=== PATIENT | female | born 1965 | race Caucasian/White ===

== ENCOUNTER → 2017-02-16 | Outpatient (CLI) | payer BC, OTHER ==
--- NOTE | 2017-02-24 14:57 | P.ARTDOP ---
Arterial Doppler LOWER EXTREMITY ARTERIAL DOPPLER: DATE OF SERVICE: 02/16/17 Reason for study: Foot ulcers. Doppler waveforms: Multiphasic throughout on the right and above the knee on the left. Atypical below the knee on the left.. Pulse volume recording: Fairly normal configuration with some mild blunting distally, especially on the left. Pressure gradients: Mild gradient across the knee on the right. Moderate gradient above and across the knee on the left.. Ankle-brachial indices: 0.82 on the right and 0.58 on the left. Toe pressures: 70 on the right, 7 on the left Impression: Mild right SFA disease. At least moderate left fem-pop disease. Between toe pressures and digital waveforms, suspect perfusion probably not adequate for healing distally on the left. Clinical correlation and vascular consultation suggested..
== END | disposition home or self-care (01) ==
LOC: RADUSWWP 13:00
PROVIDERS: ATTEND Family Medicine
DX: I87.2 Venous insufficiency (chronic) (peripheral) (principal)
CPT/HCPCS: 93923

== ENCOUNTER → 2017-03-08 | Outpatient (CLI) | payer BC, OTHER ==
--- NOTE | 2017-03-08 10:04 | XR ---
EXAMINATION TYPE: XR chest 2V DATE OF EXAM: 03/08/2017 10:00 AM HISTORY: Z01.818 pre surgical testing. REFERENCE: Previous study dated 01/20/2016. FINDINGS: The lungs are clear. Pleural spaces are clear. Heart size is normal. IMPRESSION: NORMAL CHEST.
[2017-03-08 10:31] LABS: CH 32.3; CHCM 32.8; HCT 46.5 % (34.0-46.0); HDW 2.36; HGB 15.2 gm/dL (11.4-16.0); MCH 32.3 pg (25.0-35.0); MCHC 32.6 g/dL (31.0-37.0); Mean Platelet Volume 7.4; RDW 12.8 % (11.5-15.5); WBC 12.2 k/uL (3.8-10.6)
[2017-03-08 10:46] LABS: INR 0.9 (<1.1); Partial Thromboplastin Time 24.1 sec (22.0-30.0); Prothrombin Time 9.7 sec (9.0-12.0)
[2017-03-08 10:52] LABS: Anion Gap 12 mmol/L; Blood Urea Nitrogen 15 mg/dL (7-17); Carbon Dioxide 22 mmol/L (22-30); Chloride 107 mmol/L (98-107); Glucose 171 mg/dL (74-99); Non-African American GFR(MDRD) >60 (>60 ml/min/1.73 sqM); Potassium 4.4 mmol/L (3.5-5.1); Sodium 141 mmol/L (137-145)
[2017-03-08 10:56] LABS: Appearance,Urine Clear (Clear); Bilirubin,Urine Negative (Negative); Glucose,Urine (UA) 2+ (Negative); Ketones,Urine Negative (Negative); Leukocyte Esterase,Urine Large (Negative); Mucus,Urine Rare /hpf; Nitrite,Urine Negative (Negative); Particle Count 3191; Protein,Urine Trace (Negative); RBC,Urine 2 /hpf (0-5); Specific Gravity,Urine 1.017 (1.001-1.035); Squamous Epithelial Cell,Urine 3 /hpf (0-4); UA Billing (MACRO vs. MICRO) MICRO; Urobilinogen,Urine <2.0 mg/dL (<2.0); WBC,Urine 21 /hpf (0-5)
== END | disposition home or self-care (01) ==
LOC: LABPAT 09:31
PROVIDERS: ATTEND Surgery
DX: Z01.810 Encounter for preprocedural cardiovascular examination (principal); Z01.818 Encounter for other preprocedural examination; I96 Gangrene, not elsewhere classified; I10 Essential (primary) hypertension; R05 Cough; R53.83 Other fatigue
CPT/HCPCS: 71020; 80051; 81001; 82565; 82947; 84520; 85027; 85610; 85730; 87086

== ENCOUNTER 2017-03-09 11:26 | Inpatient (IN) | payer BC, OTHER ==
[2017-03-03 14:49] VITALS: BMI 33.8
--- NOTE | 2017-03-08 18:09 | P.HPIHPCON ---
History of Present Illness H&P Date: 03/04/17 Chief Complaint: non-healing ulcer left foot with critical limb ischemia impression; 1. critical left foot ischemia with non-healing left heel ulcer 2. diabetes mellitus 3. nicotine dependence 4. CAD; clinically asymptomatic; MPS demonstrates reversible defect inferior wall plan; 1. left femoral to above knee popliteal bypass with transposed left greater saphenous vein Risks and benefits of procedure discussed with patient including cardiac and pulmonary complications, infection, bleeding, wound healing complications, need for surveillance and possible re-intervention especially if patient continues to smoke, nerve dysfunction, graft thrombosis in early post-operative period requiring re-do surgery. Patient understands risks and benefits of procedure and is willing to have it performed. She understands that she is at increased risk of cardiac complications perioperatively, but that at present time clinically her PAD is more symptomatic than CAD. For limb salvage, she requires left leg revascularization before cardiac revascularization. HPI 51 y/o woman presented to office on 02/22/2017 with a non-healing left heel ulcer with gangrene that had been present for 3 weeks and failed to heal. 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 Smokes [id number] years. DM that is controlled with oral hypoglycemics. Underwent non-invasive testing that demonstrated moderate right leg arterial occlusive disease and severe left leg arterial occlusive disease. Underwent CTA of aorta with runoff that demonstrated diminutive vessels throughout with evidence of long-segment left SFA occlusion (>150mm) and 3-4mm arteries in the left thigh. Patient is currently scheduled for left femoral to above knee bypass with transposed left greater saphenous vein for wound healing and limb salvage. Denies a history of chest pain, dyspnea, generalized malaise. NO previous cardiac history. CMHx; HTN, HLD, DM, nicotine dependence, CAD, diabetic neuropathy, COPD PSHx; cholecystectomy, tubal ligation Habits; 35 pack year history of smoking, currently smoking 1ppd, no EtOH or drugs FHx; PAD, CHF, DM, CVA Meds; Metformin, Neurontin, Symbicort, Nebulizers Allergies; NKDA PE; WDWN female in NAD BP = 126/92, P=106, RR=18, S0ded=73% HEENT; normocephalic, aneicteric sclera, no carotid bruits, no JVD, trachea is midline, no thyromegaly or lymphadenopathy, Lungs; clear bilaterally Heart; RRR, normal S1 and S2 ABD; soft, non-tender, no pulsatile organomegaly EXTR; femoral pulses are palpable bilaterally; right popliteal and pedal pulses are diminished; left popliteal and pedal pulses are not palpable; 2cmx1.5cm gangrenous ulcer on lateral aspect of left heel, no evidence of infection or abscess formation Segmental pressures performed on 02/16/2017 demonstrate moderate right leg arterial occlusive disease with an ZULMA of 0.82 and a TBI of 0.54. The left leg demonstrates severe left leg arterial occlusive disease with an ZULMA of 0.45. The TBI is 0.05. PPG waveforms in the left foot are pulsatile and severely blunted in the left foot. CTA from 02/18/2017demonstrates patent aortoiliac system with thrombus noted posteriorly in the distal aorta that does not appear hemodynamically significant ; the left common iliac artery demonstrates proximal stenosis with calcification that approaches 40%; the left external iliac artery appears patent ; the common femoral artery demonstrates up to 50% narrowing proximally on one view; there is occlusion of the left SFA with reconstitution via collaterals at the adductor canal. The left popliteal artery is patent with three vessel runoff to the foot. Vessels are small and the SFA ranges between 3 and 4 mm. Vein mapping of the left leg demonstrates patent GSV that ranges from 4.5 to 3.5 mm in the left thigh. impression/plan as noted above Consent for Procedure: I have explained the operation/procedure to the patient, including the risks, benefits, side effects, alternative therapies (including not receiving the proposed treatment or service), the likelihood of the patient achieving his/her goals, and potential recuperation problems for the procedure/sedation/analgesia , as well as any blood products, if indicated. I also explained to the patient the risks, benefits and side effects of the alternatives, as well as the risks related to not receiving the proposed procedure, care, treatment, or services. Past Medical History Past Medical History: COPD, CVA/TIA, Diabetes Mellitus, GERD/Reflux, Skin Disorder, Vascular Disorder Additional Past Medical History / Comment(s): neuropathy, TIA 2016-no residual effects, recent stress test, wound left heel History of Any Multi-Drug Resistant Organisms: None Reported Past Surgical History: Cholecystectomy, Tubal Ligation Past Anesthesia/Blood Transfusion Reactions: No Reported Reaction Past Psychological History: Depression Smoking Status: Current every day smoker Past Alcohol Use History: None Reported Additional Past Alcohol Use History / Comment(s): down to <10 cigs/day, has smoked since age of 16, used to smoke 1ppd to 1 1/2ppd Past Drug Use History: None Reported - Past Family History Mother Family Medical History: CVA/TIA Additional Family Medical History / Comment(s): borderline diabetic Father Family Medical History: Congestive Heart Failure (CHF), Diabetes Mellitus, Myocardial Infarction ([place]) Brother(s) Family Medical History: Diabetes Mellitus, Sleep Apnea/CPAP/BIPAP Sister(s) Family Medical History: AFIB Additional Family Medical History / Comment(s): unsure if sister has DM anymore since she received gastric surgery. Medications and Allergies Home Medications Medication Instructions Recorded Confirmed Type Atorvastatin Calcium [Lipitor] 40 mg PO HS 01/20/16 03/03/17 History metFORMIN HCL [Glucophage] 500 mg PO TID 01/20/16 03/04/17 History Aspirin 81 mg PO DAILY 03/03/17 03/03/17 History Budesonide-Formot 160-4.5 Mcg 2 puff INHALATION RT-BID PRN 03/03/17 03/03/17 History [Symbicort 160-4.5 Mcg Inhaler] Empagliflozin [Jardiance] 25 mg PO DAILY 03/03/17 03/03/17 History Gabapentin [Neurontin] 400 mg PO TID 03/03/17 03/04/17 History Ibuprofen [Motrin] 800 mg PO Q8HR PRN 03/03/17 03/03/17 History Ipratropium-Albuterol Nebulize 3 ml INHALATION RT-QID PRN 03/03/17 03/03/17 History [Duoneb 0.5 mg-3 mg/3 ml Soln] Mupirocin 2% Oint [Bactroban 2% 1 applic TOPICAL TID 03/03/17 03/03/17 History Oint] Nitroglycerin Sl Tabs [Nitrostat] 0.4 mg SUBLINGUAL Q5M PRN 03/03/17 03/03/17 History Omeprazole [PriLOSEC] 20 mg PO AC-BID PRN 03/03/17 03/03/17 History Metoprolol Tartrate [Lopressor] 12.5 mg PO BID 03/04/17 03/04/17 History Allergies Allergy/AdvReac Type Severity Reaction Status Date / Time No Known Allergies Allergy Verified 03/03/17 14:02
[~2017-03-09 11:26] MED LIST: DEXAMETHASONE SOD PHOSPHATE 10 MG/ML 1 ML VIAL IV ONE; HYDROmorphone 1 MG/ML 1 ML SYRINGE IVP PRN; LACTATED RINGERS 1,000 ML IV SCH; MIDAZOLAM 2 MG/2 ML VIAL IV PRN; ONDANSETRON 4 MG/2 ML VIAL IVP ONE; SCOPOLAMINE 1.5MG/72HR PATCH TRANSDERM ONE; VANCOMYCIN 1,500 MG in SODIUM CHLORIDE 0.9% 250 ML IVPB ONE
[2017-03-09 11:54] LABS: Glucose,Whole Blood 143 mg/dL (75-99)
[2017-03-09] MEDS ORDERED: LIDOCAINE 1% 20 ML VIAL (10MG/ML) FOR IV START SQ ONE (12:10)
[2017-03-09] MEDS ORDERED: LEVOFLOXACIN 500MG-D5W PMX 500 MG in DEXTROSE/WATER 1 100ML.BAG IVPB STA (12:17)
[2017-03-09] MEDS ORDERED: HEPARIN SODIUM 1,000 UNIT/ML VIAL ONE (12:47)
[2017-03-09] MEDS ORDERED: fentaNYL (PF) 50 MCG/ML 2 ML AMP ONE (12:47)
[2017-03-09] MEDS ORDERED: NEOSTIGMINE 1 MG/ML 10 ML VIAL ONE (12:47)
[2017-03-09] MEDS ORDERED: MIDAZOLAM 2 MG/2 ML VIAL ONE (12:47)
[2017-03-09] MEDS ORDERED: ETOMIDATE 2 MG/ML 10 ML VIAL ONE (12:47)
[2017-03-09] MEDS ORDERED: PROPOFOL 10 MG/ML 20 ML VIAL IV ONE (12:47)
[2017-03-09] MEDS ORDERED: ESMOLOL 100 MG/10 ML VIAL ONE (12:47)
[2017-03-09] MEDS ORDERED: ROCURONIUM BROMIDE 10 MG/ML 10 ML VIAL IV ONE (12:47)
[2017-03-09] MEDS ORDERED: GLYCOPYRROLATE 0.2 MG/ML 2 ML VIAL ONE (12:47)
[2017-03-09] MEDS ORDERED: HEPARIN SODIUM,PORCINE 5,000 UNIT/ML 1 ML VIAL ONE (12:47)
[2017-03-09] MEDS ORDERED: HYDROmorphone (PF) 1 MG/ML ONE (12:47)
[2017-03-09] MEDS ORDERED: PHENYLEPHRINE-0.9% NACL SYG 1 MG/10 ML SYRINGE ONE (12:47)
[2017-03-09] MEDS ORDERED: LIDOCAINE 1% INJ 10MG/ML (20 ML MDV) ONE (12:47)
[2017-03-09] MEDS ORDERED: SUCCINYLCHOLINE CHLORIDE 100 MG/5 ML SYR IV ONE (12:47)
[2017-03-09] MEDS ORDERED: SODIUM CHLORIDE 0.9% 500 ML with HEPARIN SODIUM,PORCINE 5,000 UNIT IV ONE ×2 (13:25)
[2017-03-09] MEDS ORDERED: IOHEXOL 350 MG/ML 50ML BOTTLE MISCELLANE ONE ×2 (14:06)
[2017-03-09] MEDS ORDERED: THROMBIN (BOVINE) 5,000 UNIT VIAL TOPICAL ONE (14:16)
[2017-03-09] MEDS ORDERED: GELATIN SPONGE,ABSORB (LARGE) 1 EACH SPONGE TOPICAL ONE (14:16)
[2017-03-09] MEDS ORDERED: PAPAVERINE 30 MG/ML 2 ML VIAL IM ONE (14:25)
[2017-03-09] MEDS ORDERED: LACTATED RINGERS 1,000 ML IV ONE ×3 (16:30→19:22)
[2017-03-09] MEDS ORDERED: oxyCODONE-APAP 7.5-325MG 1 EACH TAB PO PRN (18:48)
[2017-03-09 18:50] LABS: Glucose,Whole Blood 183 mg/dL (75-99)
[2017-03-09 19:19] LABS: Basophils % (A) 0 %; CH 32.2; CHCM 32.9; Eosinophils # (A) 0.1 k/uL (0-0.7); Eosinophils % (A) 1 %; HCT 39.6 % (34.0-46.0); HDW 2.33; HGB 12.9 gm/dL (11.4-16.0); Luc # (Auto) 0.05; Luc % (Auto) 0; Lymphocytes # (A) 0.9 k/uL (1.0-4.8); Lymphocytes % (A) 6 %; MCH 32.1 pg (25.0-35.0); MCHC 32.6 g/dL (31.0-37.0); MCV 98.4 fL (80.0-100.0); Mean Platelet Volume 7.4; Monocytes # (A) 0.2 k/uL (0-1.0); Monocytes % (A) 1 %; Neutrophils # (A) 14.7 k/uL (1.3-7.7); Neutrophils % (A) 92 %; RBC 4.03 m/uL (3.80-5.40); RDW 12.7 % (11.5-15.5); WBC (Perox) 17.17
--- NOTE | 2017-03-09 19:25 | P.OP ---
Date of Procedure: 03/09/17 Preoperative Diagnosis: critical left foot ischemia with left foot ulcer with gangrene Postoperative Diagnosis: same Procedure(s) Performed: left femoral to above knee popliteal bypass with transposed left greater saphenous vein Implants: Anesthesia: NATEA Surgeon: Mariela Khalil Manufacturing Team Leader #1: Emanuel Gt Estimated Blood Loss (ml): 250 IV fluids (ml): 1,900 Urine output (ml): 350 Pathology: other (left groin lymph node) Condition: stable Indications for Procedure: The patient is a 51-year-old woman with a greater than one-month history of a nonhealing left foot ulcer. She has a history of diabetes mellitus, hyperlipidemia, and nicotine dependence. She underwent noninvasive vascular testing that demonstrated critical left foot ischemia and severe left leg arterial occlusive disease. She underwent a CTA of the aorta that demonstrated occlusion of the left superficial femoral artery from the proximal portion to its midsection. The superficial femoral artery was a diminutive vessel and measured 3-4 mm. She underwent vein mapping of the left leg that demonstrated a good quality saphenous vein. Patient is currently scheduled for a left femoral to above-knee popliteal bypass with transposed left greater saphenous vein and related procedures. Operative Findings: #1. Good quality left greater saphenous vein #2. Diminutive but good quality left proximal popliteal artery. Description of Procedure: After induction of adequate general anesthesia via endotracheal tube, the patient's groins and left leg were prepped and draped in the usual sterile fashion. An incision was made over the distal left superficial femoral artery in the distal thigh. This was carried through the skin and subcutaneous tissues to the neurovascular bundle containing the superficial femoral and proximal popliteal arteries. The artery was identified, isolated and was noted to be of adequate quality for bypass procedure. Through the same incision the left greater saphenous vein was located. It was noted to be of good quality for bypass procedure. Tributaries were divided between 3-0 and 4-0 silk ties and hemoclips. An on-table arteriogram of the left distal popliteal artery was then performed and this demonstrated that it was widely patent with three- vessel runoff to the left foot. An oblique incision was then made in the patient's left groin. This was carried through the skin and subcutaneous tissues to the neurovascular bundle containing the left common femoral artery. This was a fairly deep dissection secondary to the patient's body habitus. The left common femoral artery was identified and isolated. It was noted to be of good quality for anastomosis. The left greater saphenous vein was then harvested from the saphenofemoral junction to just below the popliteal fossa through his series of small skip incisions. The vein was noted to be of good quality for bypass procedure. A anatomical tunnel was then created between the incision used to isolate the proximal popliteal artery and the incision used to isolate the common femoral artery. A tunneler was left in situ. The patient was then given 6000 units of heparin IV and ACT's were maintained between 250 and 300 throughout the case. The vein was inspected. A LeMaitre valvulotome was then used to lyse valves so that the vein could be placed in a transposed fashion. An end-to-side anastomosis between the proximal left greater saphenous vein and the common femoral artery was then performed at the 6-0 Prolene running. Prior to completion, a 5 mm dilator easily passed through the toe of the anastomosis into the external iliac artery. There was excellent prograde flow and good backbleeding. The anastomosis was completed and flow was released distally into the vein graft. The vein graft was then marked. It was threaded through the tunnel taking care not to twist it. An end-to-side anastomosis between the distal greater saphenous vein and the popliteal artery was then performed with a 6-0 Prolene running. Prior to completion, a 3.5 mm dilator easily passed into the distal popliteal artery. There was good backbleeding bleeding from the popliteal artery had an excellent program prograde flow through the vein graft. The anastomosis was completed and flow was released distally. An on table arteriogram demonstrated that the vein graft was patent with no evidence of technical defects. The distal anastomosis appeared widely patent with runoff via the popliteal artery that was also widely patent. All incisions were then copiously irrigated with saline solution. Hemostasis was assured with thrombin, Gelfoam, electrocautery. Incisions were closed in layers. The leg incisions were closed with a 3-0 PDS interrupted for the deep subcutaneous tissues and a 4-0 PDS interrupted for the superficial subcutaneous tissues. 4-0 nylon interrupted to skin. Incision in the groin was closed as follows. 0 PDS was used to approximate the femoral sheath. 0 PDS was used to approximate the deep subcutaneous tissues. 3-0 PDS for the more superficial subcutaneous tissues. 4-0 PDS for the most superficial subcutaneous tissues. 4-0 nylon and su to skin. Sterile dressings. Needle and sponge counts were correct. Patient tolerated the procedure and was returned to recovery in satisfactory condition. She had a palpable posterior tibial and dorsalis pedis pulse. Her foot was viable
[2017-03-09 19:43] LABS: Anion Gap 10 mmol/L; Blood Urea Nitrogen 12 mg/dL (7-17); Calcium 8.6 mg/dL (8.4-10.2); Carbon Dioxide 15 mmol/L (22-30); Chloride 112 mmol/L (98-107); Glucose 176 mg/dL (74-99); Magnesium 1.3 mg/dL (1.6-2.3); Non-African American GFR(MDRD) >60 (>60 ml/min/1.73 sqM); Potassium 4.6 mmol/L (3.5-5.1); Sodium 137 mmol/L (137-145)
[2017-03-09] MEDS ORDERED: ONDANSETRON 4 MG/2 ML VIAL IVP PRN (20:59)
[2017-03-09] MEDS ORDERED: NITROGLYCERIN SL TABS 0.4 MG TAB SUBLINGUAL PRN (20:59)
[2017-03-09] MEDS ORDERED: METOPROLOL TARTRATE 5 MG/5 ML VIAL IVP PRN (20:59)
[2017-03-09] MEDS ORDERED: IV VANCOMYCIN PER PHARMACY 1 EACH MISC MISCELLANE PRN (20:59)
[2017-03-09] MEDS ORDERED: NALOXONE 0.4 MG/ML 1 ML VIAL IV PRN (21:01)
[2017-03-09 21:23] LABS: Basophils % (A) 0 %; CH 32.2; CHCM 32.9; Eosinophils # (A) 0.1 k/uL (0-0.7); Eosinophils % (A) 1 %; HCT 43.2 % (34.0-46.0); HGB 13.9 gm/dL (11.4-16.0); Luc % (Auto) 1; Lymphocytes # (A) 1.2 k/uL (1.0-4.8); Lymphocytes % (A) 6 %; MCH 31.7 pg (25.0-35.0); MCHC 32.2 g/dL (31.0-37.0); MCV 98.3 fL (80.0-100.0); Mean Platelet Volume 7.2; Monocytes # (A) 0.6 k/uL (0-1.0); Monocytes % (A) 3 %; Neutrophils # (A) 19.3 k/uL (1.3-7.7); Neutrophils % (A) 90 %; RDW 12.7 % (11.5-15.5); WBC 21.3 k/uL (3.8-10.6)
[2017-03-09] MEDS: MAGNESIUM SULFATE-D5W PMX 1 GM in DEXTROSE/WATER 1 100ML.BAG IVPB SCH ×2 (21:32→22:57)
[2017-03-09] MEDS: ATORVASTATIN 40 MG TAB PO SCH (21:33)
[2017-03-09] MEDS: GABAPENTIN 400 MG CAP PO SCH (21:33)
[2017-03-09] MEDS: LACTATED RINGERS 1,000 ML IV SCH (21:39)
[2017-03-09 22:18] LABS: Glucose,Whole Blood 162 mg/dL (75-99)
[2017-03-09] MEDS: INSULIN LISPRO (humaLOG) 300 UNIT/3 ML VIAL SQ SCH (22:57)
[2017-03-10 00:44] LABS: Hemoglobin A1C 7.4 % (4.2-6.1)
[2017-03-10 02:03] LABS: Glucose,Whole Blood 138 mg/dL (75-99)
[2017-03-10] MEDS: INSULIN LISPRO (humaLOG) 300 UNIT/3 ML VIAL SQ SCH ×4 (02:03→18:01)
[2017-03-10] MEDS: PHENYLEPHRINE 40 MG in SODIUM CHLORIDE 0.9% 250 ML IV SCH ×2 (02:59→23:11)
[2017-03-10 04:49] LABS: Basophils # (A) 0.1 k/uL (0-0.2); Basophils % (A) 0 %; CH 32.2; CHCM 33.2; Eosinophils # (A) 0.1 k/uL (0-0.7); Eosinophils % (A) 0 %; HCT 41.8 % (34.0-46.0); HDW 2.32; HGB 13.7 gm/dL (11.4-16.0); Luc # (Auto) 0.25; Luc % (Auto) 1; Lymphocytes # (A) 2.7 k/uL (1.0-4.8); Lymphocytes % (A) 13 %; MCH 31.9 pg (25.0-35.0); MCHC 32.7 g/dL (31.0-37.0); MCV 97.4 fL (80.0-100.0); Mean Platelet Volume 7.7; Monocytes # (A) 1.2 k/uL (0-1.0); Monocytes % (A) 6 %; Neutrophils # (A) 16.7 k/uL (1.3-7.7); Neutrophils % (A) 80 %; RBC 4.29 m/uL (3.80-5.40); RDW 12.6 % (11.5-15.5); WBC 20.9 k/uL (3.8-10.6)
[2017-03-10 05:02] LABS: Anion Gap 8 mmol/L; Blood Urea Nitrogen 9 mg/dL (7-17); Calcium 9.1 mg/dL (8.4-10.2); Carbon Dioxide 20 mmol/L (22-30); Chloride 109 mmol/L (98-107); Glucose 134 mg/dL (74-99); Magnesium 1.9 mg/dL (1.6-2.3); Non-African American GFR(MDRD) >60 (>60 ml/min/1.73 sqM); Phosphorous 3.9 mg/dL (2.5-4.5); Potassium 4.6 mmol/L (3.5-5.1); Sodium 137 mmol/L (137-145)
[2017-03-10] MEDS ORDERED: VANCOMYCIN 1,250 MG in SODIUM CHLORIDE 0.9% 250 ML IVPB ONE (06:00)
[2017-03-10] MEDS ORDERED: Magnesium Replacement Protocol 1 EACH MISC MISCELLANE PRN (06:26)
[2017-03-10] MEDS: LACTATED RINGERS 1,000 ML IV SCH ×3 (06:26→21:46)
[2017-03-10 06:28] LABS: Glucose,Whole Blood 149 mg/dL (75-99)
--- NOTE | 2017-03-10 07:09 | P.PN ---
Progress Note - Text no adverse events overnight on neosynephrine drip to keep BP systolic > 100 AR low 100s pain under control BP = 104/63, AR= 105 O2 sat = 93% on RA Lungs; clear bilaterally, IS = 1500cc EXTR; dressings are intact; palpable left posterior tibial pulse, left foot is viable Labs; reviewed; no intervention at present time leukocytosis secondary to surgical stress and dexamethasone impression/plan 1. s/p left femoral to popliteal bypass 2. hypotension and tachycardia 3. diabetes mellitus 4. CAD 5. nicotine dependence advance diet 500cc bolus LR wean ramírez to off OOB to chair restart [id number]-tawnya when able
--- NOTE | 2017-03-10 07:55 | FL ---
FLUOROSCOPY 1.11 minutes of fluoroscopy time were utilized during Pain Injection. 0 images document the procedure .
[2017-03-10] MEDS: ASPIRIN 81 MG CHEW PO SCH (08:41)
[2017-03-10] MEDS: GABAPENTIN 400 MG CAP PO SCH ×3 (08:41→21:48)
[2017-03-10] MEDS: ENOXAPARIN 40 MG/0.4 ML SYRINGE SQ SCH (08:41)
[2017-03-10] MEDS: PANTOPRAZOLE 40 MG TABLET PO SCH (08:41)
[2017-03-10] MEDS: METOPROLOL TARTRATE 12.5 MG TAB PO SCH ×2 (08:42→21:49)
[2017-03-10] MEDS: NICOTINE 21MG/24HR PATCH TRANSDERM SCH (09:01)
[2017-03-10] MEDS: MAGNESIUM SULFATE-D5W PMX 1 GM in DEXTROSE/WATER 1 100ML.BAG IVPB SCH ×2 (09:01→10:26)
[2017-03-10] MEDS: oxyCODONE-APAP 10-325MG 1 EACH TAB PO PRN ×2 (10:59→19:43)
[2017-03-10 12:07] LABS: Glucose,Whole Blood 249 mg/dL (75-99)
--- NOTE | 2017-03-10 14:36 | P.CNPUL ---
History of Present Illness Consult date: 03/10/17 Reason for consult: COPD Chief complaint: PAD, diabetic ulcer History of present illness: This is a 51-year-old female who presented to the hospital for femoral- popliteal bypass surgery. The patient has a left foot ulcer and critical limb ischemia. The patient is in the intensive care unit secondary to postoperative hypotension. The patient is currently on Puma-Synephrine. The patient is a an active smoker. She smokes 1 pack per day for the last 35 years. She states she 's never seen a fabric inspector in the office. She states she has Symbicort and a nebulizer at home but she never uses. She is unsure if she's ever had a pulmonary function test in the past. Review of Systems All systems: negative Past Medical History Past Medical History: COPD, CVA/TIA, Diabetes Mellitus, GERD/Reflux, Skin Disorder, Vascular Disorder Additional Past Medical History / Comment(s): neuropathy, TIA 2015-no residual effects, recent stress test, wound left heel History of Any Multi-Drug Resistant Organisms: None Reported Past Surgical History: Cholecystectomy, Tubal Ligation Past Anesthesia/Blood Transfusion Reactions: No Reported Reaction Past Psychological History: Depression Smoking Status: Current every day smoker Past Alcohol Use History: None Reported Additional Past Alcohol Use History / Comment(s): down to <10 cigs/day, has smoked since age of 16, used to smoke 1ppd to 1 1/2ppd Past Drug Use History: None Reported - Past Family History Mother Family Medical History: CVA/TIA Additional Family Medical History / Comment(s): borderline diabetic Father Family Medical History: Congestive Heart Failure (CHF), Diabetes Mellitus, Myocardial Infarction ([place]) Brother(s) Family Medical History: Diabetes Mellitus, Sleep Apnea/CPAP/BIPAP Sister(s) Family Medical History: AFIB Additional Family Medical History / Comment(s): unsure if sister has DM anymore since she received gastric surgery. Medications and Allergies Home Medications Medication Instructions Recorded Confirmed Type Atorvastatin Calcium [Lipitor] 40 mg PO HS 01/20/16 03/09/17 History metFORMIN HCL [Glucophage] 500 mg PO TID 01/20/16 03/09/17 History Aspirin 81 mg PO DAILY 03/03/17 03/09/17 History Budesonide-Formot 160-4.5 Mcg 2 puff INHALATION RT-BID PRN 03/03/17 03/09/17 History [Symbicort 160-4.5 Mcg Inhaler] Empagliflozin [Jardiance] 25 mg PO DAILY 03/03/17 03/09/17 History Gabapentin [Neurontin] 400 mg PO TID 03/03/17 03/09/17 History Ibuprofen [Motrin] 800 mg PO Q8HR PRN 03/03/17 03/09/17 History Ipratropium-Albuterol Nebulize 3 ml INHALATION RT-QID PRN 03/03/17 03/09/17 History [Duoneb 0.5 mg-3 mg/3 ml Soln] Mupirocin 2% Oint [Bactroban 2% 1 applic TOPICAL TID 03/03/17 03/09/17 History Oint] Nitroglycerin Sl Tabs [Nitrostat] 0.4 mg SUBLINGUAL Q5M PRN 03/03/17 03/09/17 History Omeprazole [PriLOSEC] 20 mg PO AC-BID PRN 03/03/17 03/09/17 History Allergies Allergy/AdvReac Type Severity Reaction Status Date / Time No Known Allergies Allergy Verified 03/03/17 14:02 Physical Exam Osteopathic Statement: *. No significant issues noted on an osteopathic structural exam other than those noted in the History and Physical/Consult. Vitals: Vital Signs Temp Pulse Pulse Resp BP BP BP 03/10/17 13:00 109 H 52 H 87/63 03/10/17 12:00 98.3 F 103 H 18 131/82 03/10/17 11:00 101 H 18 88/71 03/10/17 10:00 106 H 15 88/71 03/10/17 09:00 105 H 17 83/56 03/10/17 08:00 98.3 F 102 H 15 100/62 03/10/17 07:00 105 H 14 88/57 03/10/17 06:00 108 H 15 92/68 03/10/17 05:00 107 H 11 L 81/55 03/10/17 04:00 98.7 F 103 H 14 80/56 03/10/17 03:00 108 H 14 82/54 03/10/17 02:00 106 H 13 83/61 03/10/17 01:00 102 H 13 86/52 03/10/17 00:00 98.4 F 83 13 78/52 03/09/17 23:03 102 H 13 03/09/17 23:00 100 20 90/54 03/09/17 22:30 98 13 101/62 03/09/17 22:00 96 14 113/62 03/09/17 21:30 97 12 114/64 03/09/17 21:10 100 13 113/62 03/09/17 21:00 96 11 L 113/62 03/09/17 20:50 97 12 108/57 03/09/17 20:40 99 11 L 108/57 03/09/17 20:30 98 10 L 108/57 03/09/17 20:20 98.8 F 99 11 L 133/61 03/09/17 20:14 100 14 03/09/17 19:43 84 18 104/56 03/09/17 19:20 85 18 91/53 03/09/17 19:14 86 18 77/36 99/52 03/09/17 19:00 79 18 101/52 112/56 03/09/17 18:45 96 16 117/63 109/57 03/09/17 18:30 99 16 87/48 107/56 03/09/17 18:14 98.7 F 109 H 14 92/52 110/57 Pulse Ox 03/10/17 13:00 96 03/10/17 12:00 95 03/10/17 11:00 96 03/10/17 10:00 97 03/10/17 09:00 95 03/10/17 08:00 95 03/10/17 07:00 93 L 03/10/17 06:00 98 03/10/17 05:00 97 03/10/17 04:00 98 03/10/17 03:00 98 03/10/17 02:00 98 03/10/17 01:00 98 03/10/17 00:00 98 03/09/17 23:03 97 03/09/17 23:00 97 03/09/17 22:30 98 03/09/17 22:00 97 03/09/17 21:30 98 03/09/17 21:10 98 03/09/17 21:00 97 03/09/17 20:50 92 L 03/09/17 20:40 94 L 03/09/17 20:30 95 03/09/17 20:20 03/09/17 20:14 03/09/17 19:43 97 03/09/17 19:20 96 03/09/17 19:14 96 03/09/17 19:00 96 03/09/17 18:45 99 03/09/17 18:30 99 03/09/17 18:14 97 Intake and Output 03/09/17 03/10/17 03/10/17 22:59 06:59 14:59 Intake Total 3520 7090.861 2950.67 Output Total 029 659 3171 Balance 2595 635.604 133.67 Intake: IV 2500 200 Lactated Ringers 1,000 ml 200 @ 100 mls/hr IV .Q10H STACIE Rx#:[id number] Intake, IV Titration 300 910.604 703.67 Amount Lactated Ringers 1,000 ml 200 800 100 @ 100 mls/hr IV .Q10H STACIE Rx#:[id number] Lactated Ringers 500 ml @ 250 250 mls/hr IV .Q2H STACIE Rx#:[id number] Magnesium Sulfate-D5w Pmx 100 100 1 gm In Dextrose/Water 1 100ml.bag @ 100 mls/hr IVPB Q1H STACIE Rx#: [id number] Magnesium Sulfate-D5w Pmx 200 1 gm In Dextrose/Water 1 100ml.bag @ 100 mls/hr IVPB Q1H STACIE Rx#: [id number] Phenylephrine 40 mg In 10.604 153.67 Sodium Chloride 0.9% 250 ml @ Titrate IV .Q0M STACIE Rx#:[id number] Oral 720 600 240 Output: Urine 520 909 0586 Estimated Blood Loss 250 Other: Voiding Method Indwelling Catheter Indwelling Catheter # Bowel Movements 0 Weight 88.7 kg ABP, PAP, CO, CI - Last 8 Hours Arterial Blood Pressure 105/93 Arterial Blood Pressure 168/80 Arterial Blood Pressure 109/60 Arterial Blood Pressure 108/67 Arterial Blood Pressure 94/60 Arterial Blood Pressure 88/65 Arterial Blood Pressure 104/63 Gen.: Patient is alert and oriented 3, no acute distress Cardiovascular: Regular rate and rhythm, S1/S2 Lungs: Diminished breath sounds bilaterally Abdomen: Soft nontender nondistended positive bowel sounds Extremities: No edema, left lower extremity dressing clean dry and intact Results - Laboratory Findings CBC and BMP: 03/10/17 03:59 03/10/17 03:59 Abnormal lab findings: Abnormal Labs 03/09/17 03/09/17 03/09/17 11:52 18:44 19:00 WBC 16.0 H Neutrophils # 14.7 H Lymphocytes # 0.9 L Monocytes # Chloride Carbon Dioxide Creatinine Glucose POC Glucose (mg/dL) 143 H 183 H Hemoglobin A1c Magnesium 03/09/17 03/09/17 03/09/17 19:00 21:06 21:06 WBC 21.3 H Neutrophils # 19.3 H Lymphocytes # Monocytes # Chloride 112 H Carbon Dioxide 15 L Creatinine 0.45 L Glucose 176 H POC Glucose (mg/dL) Hemoglobin A1c 7.4 H Magnesium 1.3 L 03/09/17 03/10/17 03/10/17 22:17 02:02 03:59 WBC 20.9 H Neutrophils # 16.7 H Lymphocytes # Monocytes # 1.2 H Chloride Carbon Dioxide Creatinine Glucose POC Glucose (mg/dL) 162 H 138 H Hemoglobin A1c Magnesium 03/10/17 03/10/17 03/10/17 03:59 06:26 12:05 WBC Neutrophils # Lymphocytes # Monocytes # Chloride 109 H Carbon Dioxide 20 L Creatinine 0.47 L Glucose 134 H POC Glucose (mg/dL) 149 H 249 H Hemoglobin A1c Magnesium Assessment and Plan Plan: Status post femoral-popliteal bypass surgery Postoperative hypotension COPD, not acutely exacerbated Active tobacco abuse Diabetes mellitus type 2 with neuropathy and a left foot ulcer Leukocytosis Hypertension Dyslipidemia Coronary artery disease Maintain saturation greater than or equal to 88% Wean Puma-Synephrine or map greater than 65 Smoking cessation is highly recommended Will start patient on Symbicort and Spiriva Outpatient pulmonary follow-up with pulmonary function testing Incentive spirometry and pulmonary hygiene Blood sugar control Nicotine TD GI and DVT prophylaxis Thank you for this consultation we'll continue to follow along
[2017-03-10] MEDS: LACTATED RINGERS 500 ML IV SCH (15:00)
[2017-03-10 18:05] LABS: Glucose,Whole Blood 206 mg/dL (75-99)
[2017-03-10] MEDS: ATORVASTATIN 40 MG TAB PO SCH (21:47)
[2017-03-11] MEDS: oxyCODONE-APAP 10-325MG 1 EACH TAB PO PRN ×2 (01:03→15:50)
[2017-03-11 01:04] LABS: Glucose,Whole Blood 154 mg/dL (75-99)
[2017-03-11] MEDS: INSULIN LISPRO (humaLOG) 300 UNIT/3 ML VIAL SQ SCH ×5 (01:04→21:47)
[2017-03-11] MEDS ORDERED: PHENYLEPHRINE 40 MG in SODIUM CHLORIDE 0.9% 250 ML IV SCH (01:30)
[2017-03-11 04:19] LABS: Basophils # (A) 0.1 k/uL (0-0.2); Basophils % (A) 1 %; CH 32.5; CHCM 33.2; Eosinophils # (A) 0.2 k/uL (0-0.7); Eosinophils % (A) 1 %; HCT 35.8 % (34.0-46.0); HDW 2.25; HGB 11.9 gm/dL (11.4-16.0); Luc # (Auto) 0.23; Luc % (Auto) 2; Lymphocytes # (A) 2.9 k/uL (1.0-4.8); Lymphocytes % (A) 22 %; MCH 32.7 pg (25.0-35.0); MCHC 33.3 g/dL (31.0-37.0); MCV 98.1 fL (80.0-100.0); Mean Platelet Volume 7.3; Monocytes # (A) 0.8 k/uL (0-1.0); Monocytes % (A) 6 %; Neutrophils # (A) 9.2 k/uL (1.3-7.7); Neutrophils % (A) 69 %; RBC 3.65 m/uL (3.80-5.40); RDW 12.9 % (11.5-15.5); WBC 13.4 k/uL (3.8-10.6); WBC (Perox) 14.38
[2017-03-11 04:28] LABS: Anion Gap 6 mmol/L; Blood Urea Nitrogen 9 mg/dL (7-17); Calcium 8.7 mg/dL (8.4-10.2); Carbon Dioxide 22 mmol/L (22-30); Chloride 109 mmol/L (98-107); Glucose 120 mg/dL (74-99); Magnesium 1.6 mg/dL (1.6-2.3); Non-African American GFR(MDRD) >60 (>60 ml/min/1.73 sqM); Potassium 3.8 mmol/L (3.5-5.1); Sodium 137 mmol/L (137-145)
--- NOTE | 2017-03-11 07:24 | P.PN ---
Progress Note - Text hypotensive overnight requiring neosynepherine otherwise no new complaints has non-productive cough BP = 94/60 AR= 88 I/O = 811/108 last shift; 1297/1100 lungs; clear bilaterally; IS = 1500cc EXTR; left leg demonstrates healing incisions without evidence of infection or hematoma formation; palpable dorsalis pedis pulse and posterior tibial pulse; foot is viable; ulcerative areas appear stable Labs; reviewed; no intervention at present impression/plan 1. s/p left femoral to above knee popltieal bypass with transposed left greater saphenous vein 2. COPD 3. DM 4. nicotine dependence 5. CAD wean ramírez to off transfer to [facility] with telemetry OT/PT d/c daphney-anjali and hugh
[2017-03-11] MEDS: IPRATROPIUM-ALBUTEROL 3 ML NEB INHALATION PRN ×2 (07:37→12:16)
[2017-03-11] MEDS: TIOTROPIUM 18 MCG/PUFF INHALER INHALATION SCH (07:40)
[2017-03-11] MEDS: SYMBICORT 160-4.5 MCG INHALER INHALATION PRN (07:40)
[2017-03-11] MEDS ORDERED: LACTATED RINGERS 1,000 ML IV SCH (08:30)
[2017-03-11] MEDS: MAGNESIUM SULFATE-D5W PMX 1 GM in DEXTROSE/WATER 1 100ML.BAG IVPB SCH ×2 (09:12→12:50)
[2017-03-11] MEDS: ENOXAPARIN 40 MG/0.4 ML SYRINGE SQ SCH (09:13)
[2017-03-11] MEDS: ASPIRIN 81 MG CHEW PO SCH (09:13)
[2017-03-11] MEDS: NICOTINE 21MG/24HR PATCH TRANSDERM SCH (09:13)
[2017-03-11] MEDS: PANTOPRAZOLE 40 MG TABLET PO SCH (09:13)
[2017-03-11] MEDS: GABAPENTIN 400 MG CAP PO SCH ×3 (09:14→21:47)
[2017-03-11 09:16] LABS: Glucose,Whole Blood 239 mg/dL (75-99)
--- NOTE | 2017-03-11 11:25 | CDI ---
In responding to this query, please exercise your independent professional judgment. The [facility] Coding Staff and Clinical Documentation Specialists appreciate your assistance in clarifying documentation, maintaining compliance with coding guidelines, accurately documenting patients condition and capturing severity of illness. The fact that a question is asked does not imply that any particular answer is desired or expected. Communication forms are a method of clarifying documentation and are not made part of the Legal Health Record. Thank you in advance for your clarification. Last Revision, December 2015 Sandi Ramos [address] [place] [address] Documentation Clarification Form Date: 03/11/2017 11:13:00 AM From: Ursula Rowan RN, CCDS Admit Date: 03/09/2017 11:26:00 AM Patient Name: Alejandrina Thornton Visit Number: [id number] Dr. Megan Harmon Patient history/risk factors: Nonhealing left heel ulcer with gangrene, moderate right leg and severe left leg arterial occlusive disease, Long segment SFA occlusion, DM2, HTN, CAD, nicotine dependence Clinical Indicators: 03/10 Vascular surgery: hypotension and tachycardia." 03/10 Pulmonary Critical care Consult: "The patient is in the intensive care unit secondary to postoperative hypotension." Vitals: P-op HR 109, RR 14, B/P 92/52, Spo2 97% simple mask Treatment: Neosynephrine Drip LR IVF Boluses with LR @ 100 cc/hrs Decadron 5mg IVP x1 In your professional opinion, can you please specify the type of shock if known ? Septic Shock o Suspected or known causative organism o Any associated organ failure Cardiogenic Shock o Cause Hypovolemic Shock O Cause Post-Operative Hypotension (Please specify is this was an expected, unexpected, or inherent complication of procedure) Other, please specify Unable to determine Please document in your progress notes and discharge summary in order to capture severity of illness and risk of mortality. Include clinical findings that support your diagnosis. FYI: Press F11 to launch patient chart. Place X here if this finding has no clinical significance, is not applicable or if you are not able to provide any additional documentation. GRACIELAD
[2017-03-11 12:20] LABS: Glucose,Whole Blood 204 mg/dL (75-99)
[2017-03-11] MEDS: LACTATED RINGERS 1,000 ML IV SCH (12:31)
[2017-03-11] MEDS: MAGNESIUM OXIDE 400 MG TAB PO SCH ×2 (12:32→21:47)
[2017-03-11] MEDS: LACTATED RINGERS 500 ML IV SCH (13:03)
[2017-03-11] MEDS: METOPROLOL TARTRATE 12.5 MG TAB PO SCH (13:03)
[2017-03-11 15:26] VITALS: RESP 18
--- NOTE | 2017-03-11 15:48 | PN ---
DATE OF SERVICE: 03/11/2017 HISTORY OF PRESENT ILLNESS: The patient is a 51-year-old female who had femoropopliteal bypass surgery where she had left foot ulcer. She required a brief stay in ICU due to problems with hypotension and had been on neosynephrine. This was able to be weaned off. Patient is seen. She is sitting on the edge of the bed. They are getting ready to transfer her to a telemetry bed. She denies any difficulty with breathing or chest pain. She does have some discomfort at incision site. She has had no nausea or vomiting. She has been going to the bathroom okay. On physical examination, vital signs show temperature of 98.5, heart rate 105, respiratory rate 19, blood pressure 127/55, oxygen saturation on room air 97%. LABS: WBCs are 13.4, hemoglobin 11.9, hematocrit 35.8, platelets 311. Sodium is 137, potassium 3.8, chloride 109, carbon dioxide 22. BUN 9, creatinine 0.5. Glucose 120. Calcium 8.7. Phosphorus is 3. Magnesium is 1.6. Troponin is 0.029. Urine culture has been negative. GENERAL: Patient is a 51-year-old female in no acute respiratory distress at this time. HEENT: Pupils are reactive. Mucous membranes are moist. NECK: Supple. Trachea is midline. Lung sounds are diminished. CARDIOVASCULAR: S1, S2 are heard; regular. ABDOMEN: Soft. Bowel sounds present. EXTREMITIES: With SOSA hose to right leg. Left leg with Kerlix dressing. NEUROLOGIC: She is awake. IMPRESSION: 1. Status post femoropopliteal bypass surgery. 2. Chronic obstructive pulmonary disease, stable. 3. Diabetes mellitus, type 2, with neuropathy. 4. Left foot ulcer. 5. Leukocytosis. 6. Hypertension. 7. Dyslipidemia. 8. Coronary artery disease. 9. Nicotine dependence. PLAN: Patient will be transferred to telemetry. Oxygen as needed to keep saturations 90% or better. Smoking cessation discussed. Continue with increasing activity as tolerated. Continue with pulmonary hygiene. Continue with GI and DVT prophylaxis. Continue with nebulizers and inhalers as ordered. Patient has nicotine patch. Will continue to follow patient with you and make further changes as necessary.
[2017-03-11 16:49] LABS: Glucose,Whole Blood 197 mg/dL (75-99)
[2017-03-11 20:40] LABS: Glucose,Whole Blood 187 mg/dL (75-99)
[2017-03-11] MEDS: ATORVASTATIN 40 MG TAB PO SCH (21:47)
[2017-03-12 01:45] LABS: Basophils % (A) 0 %; CH 32.6; Eosinophils # (A) 0.2 k/uL (0-0.7); Eosinophils % (A) 2 %; HCT 35.3 % (34.0-46.0); HDW 2.32; HGB 11.9 gm/dL (11.4-16.0); Luc # (Auto) 0.24; Luc % (Auto) 2; Lymphocytes # (A) 2.3 k/uL (1.0-4.8); Lymphocytes % (A) 21 %; MCH 32.5 pg (25.0-35.0); MCHC 33.9 g/dL (31.0-37.0); Mean Platelet Volume 7.5; Monocytes # (A) 0.7 k/uL (0-1.0); Monocytes % (A) 6 %; Neutrophils # (A) 7.5 k/uL (1.3-7.7); Neutrophils % (A) 68 %; RBC 3.67 m/uL (3.80-5.40); RDW 12.3 % (11.5-15.5); WBC (Perox) 11.53
[2017-03-12 01:58] LABS: Anion Gap 8 mmol/L; Blood Urea Nitrogen 7 mg/dL (7-17); Calcium 8.8 mg/dL (8.4-10.2); Carbon Dioxide 21 mmol/L (22-30); Chloride 107 mmol/L (98-107); Glucose 167 mg/dL (74-99); Magnesium 1.6 mg/dL (1.6-2.3); Non-African American GFR(MDRD) >60 (>60 ml/min/1.73 sqM); Phosphorous 3.2 mg/dL (2.5-4.5); Sodium 136 mmol/L (137-145)
[2017-03-12] MEDS: oxyCODONE-APAP 10-325MG 1 EACH TAB PO PRN ×2 (03:50→10:51)
[2017-03-12 06:13] LABS: Glucose,Whole Blood 180 mg/dL (75-99)
[2017-03-12] MEDS: INSULIN LISPRO (humaLOG) 300 UNIT/3 ML VIAL SQ SCH ×2 (06:39→12:53)
[2017-03-12] MEDS: PANTOPRAZOLE 40 MG TABLET PO SCH (06:40)
--- NOTE | 2017-03-12 08:57 | P.PN ---
Progress Note - Text no adverse events overnight walked to the window yesterday and back; able to lie flat without dyspnea pain seems controlled on current regimen Tmax = 100.4 other VSS, I/O = 1675/1775 lungs; clear bilaterally left leg; moderate edema; bypass patent; palpable dorsalis pedis and posterior tibial pulse; biphasic signal; foot is viable Labs; reviewed; no intervention at this time impression/plan; 1. s/p left femoral to above knee popliteal bypass with transposed greater saphenous vein for critical left foot ischemia 2. nicotine dependence 3. COPD 4. acute blood loss anemia 5. debilitation continue PT/OT today discharge planning for home health nurse begin metoprolol 6.125mg po BID begin stool softeners continue pulmonary toilet OK to discharge home when OK with pulmonary medicine/PT and when home health is arranged
[2017-03-12] MEDS ORDERED: METOPROLOL TARTRATE 12.5 MG TAB PO SCH (09:00)
[2017-03-12] MEDS ORDERED: DOCUSATE 100 MG CAP PO SCH (09:00)
[2017-03-12] MEDS ORDERED: SENNOSIDES 8.6 MG TAB PO SCH (09:00)
[2017-03-12] MEDS: SYMBICORT 160-4.5 MCG INHALER INHALATION PRN (09:22)
[2017-03-12] MEDS: TIOTROPIUM 18 MCG/PUFF INHALER INHALATION SCH (09:22)
[2017-03-12] MEDS: GABAPENTIN 400 MG CAP PO SCH (09:59)
[2017-03-12] MEDS: ASPIRIN 81 MG CHEW PO SCH (09:59)
[2017-03-12] MEDS: ENOXAPARIN 40 MG/0.4 ML SYRINGE SQ SCH (10:00)
[2017-03-12] MEDS: MAGNESIUM OXIDE 400 MG TAB PO SCH (10:00)
[2017-03-12] MEDS: NICOTINE 21MG/24HR PATCH TRANSDERM SCH (10:00)
--- NOTE | 2017-03-12 10:23 | CDI ---
In responding to this query, please exercise your independent professional judgment. The [facility] Coding Staff and Clinical Documentation Specialists appreciate your assistance in clarifying documentation, maintaining compliance with coding guidelines, accurately documenting patients condition and capturing severity of illness. The fact that a question is asked does not imply that any particular answer is desired or expected. Communication forms are a method of clarifying documentation and are not made part of the Legal Health Record. Thank you in advance for your clarification. Last Revision, December 2015 Sandi Ramos [address] [facility] [place] [address] Documentation Clarification Form Date: 03/11/2017 11:13:00 AM From: Ursula Rowan RN, CCDS Admit Date: 03/09/2017 11:26:00 AM Patient Name: Alejandrina Thornton Visit Number: [id number] Dr. Khalil Patient history/risk factors: Nonhealing left heel ulcer with gangrene, moderate right leg and severe left leg arterial occlusive disease, Long segment SFA occlusion, DM2, HTN, CAD, nicotine dependance Clinical Indicators: 03/10 Vascular surgery: " hypotension and tachycardia." 03/10 Pulmonary Critical care Consult: "The patient is in the intensive care unit secondary to postoperative hypotension." Vitals: P-op HR 109, RR 14, B/P 92/52, Spo2 97% simple mask Treatment: Neosynephrine Drip LR IVF Boluses with LR @ 100 cc/hrs Decadron 5mg IVP x1 In your professional opinion, can you please specify the type of shock if known ? Septic Shock o Suspected or known causative organism o Any associated organ failure Cardiogenic Shock o Cause Hypovolemic Shock o Cause Other, please specify Unable to determine Please document in your progress notes and discharge summary in order to capture severity of illness and risk of mortality. Include clinical findings that support your diagnosis. FYI: Press F11 to launch patient chart. Place X here if this finding has no clinical significance, is not applicable or if you are not able to provide any additional documentation. MTDD
[2017-03-12] MEDS: LACTATED RINGERS 1,000 ML IV SCH (10:26)
[2017-03-12 11:50] LABS: Glucose,Whole Blood 216 mg/dL (75-99)
--- NOTE | 2017-03-12 11:54 | P.PN ---
Subjective This is a 51-year-old female who presented to the hospital for femoral- popliteal bypass surgery. The patient has a left foot ulcer and critical limb ischemia. The patient was in the intensive care unit secondary to postoperative hypotension, did receive Puma-Synephrine briefly. The patient is a an active smoker. She smokes 1 pack per day for the last 35 years. She states she's never seen a slip box changer in the office. Currently she denies any difficulty with breathing or any chest pain. She does have some discomfort at the incisional site. Patient currently is resting up in bed on room air. Patient states she would like to go home and she feels much better. Patient states her pain is under control. Objective - Vital Signs Vital signs: Vital Signs Temp 98.4 F 03/12/17 08:00 Pulse 103 H 03/12/17 08:00 Resp 18 03/12/17 08:00 BP 123/78 03/12/17 08:00 Pulse Ox 95 03/12/17 08:00 Intake & Output 03/11/17 03/12/17 03/12/17 18:59 06:59 18:59 Intake Total 817 800 Output Total 665 1100 Balance 152 -300 Intake: IV 400 800 Lactated Ringers 1,000 ml 100 @ 100 mls/hr IV .Q10H STACIE Rx#:[id number] Lactated Ringers 1,000 ml 300 800 @ 50 mls/hr IV .Q20H STACIE Rx#:[id number] Oral 417 Output: Urine 665 1100 Other: Voiding Method Indwelling Catheter Toilet ABP, PAP, CO, CI - Last Documented Arterial Blood Pressure 155/67 - Exam GENERAL EXAM: Alert, active, comfortable in no apparent distress. HEAD: Normocephalic. EYES: Normal reaction of pupils, equal size. NOSE: Clear with pink turbinates. THROAT: No erythema or exudates. NECK: No masses, no JVD. CHEST: No chest wall deformity. LUNGS: Equal air entry with no crackles, wheeze, rhonchi or dullness. Bases diminished CVS: S1 and S2 normal with no audible mumurs, regular rhythm. ABDOMEN: No hepatosplenomegaly, normal bowel sounds, no guarding or rigidity. EXTREMITIES: No edema noted, pedal pulses palpable. Left leg dressing clean dry and intact. SKIN: No rashes CENTRAL NERVOUS SYSTEM: No focal deficits, tone is normal in all 4 extremities. - Labs CBC & Chem 7: 03/12/17 01:19 03/12/17 01:19 Labs: Abnormal Lab Results - Last 24 Hours (Table) 03/11/17 03/11/17 03/11/17 Range/Units 12:18 16:38 20:39 WBC (3.8-10.6) k/uL RBC (3.80-5.40) m/uL Sodium (137-145) mmol/L Carbon Dioxide (22-30) mmol/L Creatinine (0.52-1.04) mg/dL Glucose (74-99) mg/dL POC Glucose (mg/dL) 204 H 197 H 187 H (75-99) mg/dL 03/12/17 03/12/17 03/12/17 Range/Units 01:19 01:19 06:09 WBC 11.0 H (3.8-10.6) k/uL RBC 3.67 L (3.80-5.40) m/uL Sodium 136 L (137-145) mmol/L Carbon Dioxide 21 L (22-30) mmol/L Creatinine 0.50 L (0.52-1.04) mg/dL Glucose 167 H (74-99) mg/dL POC Glucose (mg/dL) 180 H (75-99) mg/dL Microbiology - Last 24 Hours (Table) 03/09/17 12:00 Urine Culture - Final Urine,Voided Assessment and Plan Plan: Assessment Status post femoral-popliteal bypass surgery Chronic obstructive pulmonary disease, stable Diabetes mellitus type 2 Diabetic neuropathy Left foot ulcer Leukocytosis, improved History of hypertension History of dyslipidemia Coronary artery disease Nicotine dependence Plan Patient is stable for discharge from a pulmonary standpoint. Medications have been reviewed and will be continued as ordered. Continue with pulmonary hygiene , and supportive care. GI and DVT prophylaxis. Continue with nebulizers and inhalers as ordered. Smoking cessation discussed at length. We will continue to monitor labs/results and adjust treatment as necessary. I performed an examination of the patient and discussed their management with the nurse practitioner. I have reviewed the nurse practitioner's note and agree with the documented findings and plan of care. We are covering for Dr. JAMIL Paul today.
[2017-03-12 13:23] VITALS: BP 102/62; PULSE 81; TEMP 97.3
--- NOTE | 2017-03-12 14:43 | P.DS ---
Providers Date of admission: 03/09/17 11:26 Expected date of discharge: 03/12/17 Attending physician: Mariela Khalil MD Consults: 03/09/17 20:59 Consult Physician Routine Consulting Provider: Megan Harmon Consult Reason/Comments: ICU care, COPD Do you want consulting provider notified?: Already Contacted Primary care physician: [facility] Course: Patient was admitted on 03/10/2017 for left femoral to above-knee popliteal bypass with transposed left greater saphenous vein for critical left foot ischemia and nonhealing heel ulcer. Patient underwent procedure and was admitted to the ICU for every hour hour neurovascular checks to her left leg as well as hemodynamic monitoring. She was noted to be hypotensive postoperatively secondary to hypovolemia and residual from anesthetic medications that cause hypotension. She was supported on a Puma-Synephrine drip to keep her systolic blood pressure greater than 100 for perfusion of left femoral to popliteal bypass. She was gradually weaned off of Puma-Synephrine. She was seen and evaluated by the critical care and pulmonary services. She was started on nebulizers and inhaler treatments for COPD. She was evaluated for signs and symptoms of coronary ischemia. This demonstrated no significant signs of coronary ischemia. Her troponins remained within normal limits 48 hours postoperatively. She was noted to have hypomagnesemia which was corrected with both IV and oral supplementation. She was transferred to the floor on 03/11/2017. She was seen and evaluated by occupational and physical therapy and underwent evaluation for activities of daily living and ambulation. She made significant progress with respect to physical therapy. She was. She was discharged on 03/12/2017. At that time her pain was controlled. Her blood pressure had stabilized. She was afebrile. She was slightly tachycardic with movement. Her lungs were clear to auscultation. Her left leg incisions were healing without evidence of significant hematoma or infection. All suture lines were intact. There was moderate left leg edema. There were palpable dorsalis pedis and posterior tibial pulses with a viable left foot. Signals in the tibial regions were triphasic. She was discharged home with a home health nurse for dressing changes, evaluation of the incisions for infection and the like for ischemia, and symptoms and signs of coronary ischemia. Patient Condition at Discharge: Good Plan - Discharge Summary New Discharge Prescriptions: Budesonide-Formot 160-4.5 Mcg [Symbicort 160-4.5 Mcg Inhaler] 2 puff INHALATION RT-BID PRN #1 PRN Reason: Dyspnea Docusate [Colace] 100 mg PO DAILY 30 Days Magnesium Oxide [Mag-Ox] 400 mg PO BID 10 Days Metoprolol Tartrate [Lopressor] 12.5 mg PO BID #60 dose Metoprolol Tartrate [Lopressor] 6.125 mg PO BID #60 tab Nicotine 21Mg/24Hr Patch [Habitrol] 1 patch TRANSDERM DAILY #14 patch oxyCODONE-APAP 10-325MG [Percocet 10-325 mg] 1 each PO Q4H PRN 10 Days PRN Reason: Pain Tiotropium 18 Mcg/Puff [Spiriva] 1 puff INHALATION RT-DAILY #1 inhaler Discharge Medication List Atorvastatin Calcium [Lipitor] 40 mg PO HS 01/20/16 [History] metFORMIN HCL [Glucophage] 500 mg PO TID 01/20/16 [History] Aspirin 81 mg PO DAILY 03/03/17 [History] Empagliflozin [Jardiance] 25 mg PO DAILY 03/03/17 [History] Gabapentin [Neurontin] 400 mg PO TID 03/03/17 [History] Ipratropium-Albuterol Nebulize [Duoneb 0.5 mg-3 mg/3 ml Soln] 3 ml INHALATION RT -QID PRN 03/03/17 [History] Nitroglycerin Sl Tabs [Nitrostat] 0.4 mg SUBLINGUAL Q5M PRN 03/03/17 [History] Omeprazole [PriLOSEC] 20 mg PO AC-BID PRN 03/03/17 [History] Budesonide-Formot 160-4.5 Mcg [Symbicort 160-4.5 Mcg Inhaler] 2 puff INHALATION RT-BID PRN #1 03/12/17 [Rx] Docusate [Colace] 100 mg PO DAILY 30 Days 03/12/17 [Rx] Magnesium Oxide [Mag-Ox] 400 mg PO BID 10 Days 03/12/17 [Rx] Metoprolol Tartrate [Lopressor] 6.125 mg PO BID #60 tab 03/12/17 [Rx] Metoprolol Tartrate [Lopressor] 12.5 mg PO BID #60 dose 03/12/17 [Rx] Nicotine 21Mg/24Hr Patch [Habitrol] 1 patch TRANSDERM DAILY #14 patch 03/12/17 [ Rx] Tiotropium 18 Mcg/Puff [Spiriva] 1 puff INHALATION RT-DAILY #1 inhaler 03/12/17 [Rx] oxyCODONE-APAP 10-325MG [Percocet 10-325 mg] 1 each PO Q4H PRN 10 Days 03/12/17 [Rx] Follow up Appointment(s)/Referral(s): Mariela Khalil MD [STAFF PHYSICIAN] - 1 Week (patient to be seen on 03/18/2017 at 1400; please call to confirm appointment) [facility], [NON-STAFF] - Patient Instructions/Handouts: Femoropopliteal Bypass (DC) Activity/Diet/Wound Care/Special Instructions: no heavy lifting or driving x 1 month shower no tub bath x 1 month weight bearing as tolerated keep left leg elevated when sitting; no prolonged standing clean around incisions every other day with alcohol, cover with non-adherent dressing and gauze; secure with transparent dressing or paper tape clean left heel incision daily with betadine and apply new bandaid wear juliano hose on both legs during the day and take off at night Discharge Disposition: HOME WITH HOME HEALTH SERVICES
== END 2017-03-12 15:45 | disposition home health service (06) | DRG 253 ==
LOC: 2ORMAIN 11:26 → 6ICU 18:56 → 6SEL 03-11 12:48
PROVIDERS: ADMIT Surgery; ATTEND Surgery
PROC: 06BQ4ZZ Excision of Left Saphenous Vein, Percutaneous Endoscopic Approach (ICD-10-PCS; principal; 2017-03-09 13:00)
PROC: 041 Lower Arteries, Bypass (ICD-10-PCS; principal; 2017-03-09 13:00)
DX: E11.52 Type 2 diabetes mellitus with diabetic peripheral angiopathy with gangrene (principal); D62 Acute posthemorrhagic anemia; E11.42 Type 2 diabetes mellitus with diabetic polyneuropathy; E11.621 Type 2 diabetes mellitus with foot ulcer; L97.529 Non-pressure chronic ulcer of other part of left foot with unspecified severity; E86.1 Hypovolemia; D72.829 Elevated white blood cell count, unspecified; E78.5 Hyperlipidemia, unspecified; F17.210 Nicotine dependence, cigarettes, uncomplicated; I10 Essential (primary) hypertension; I25.10 Atherosclerotic heart disease of native coronary artery without angina pectoris; J44.9 Chronic obstructive pulmonary disease, unspecified; K21.9 Gastro-esophageal reflux disease without esophagitis; Z79.82 Long term (current) use of aspirin; Z79.899 Other long term (current) drug therapy; Z82.49 Family history of ischemic heart disease and other diseases of the circulatory system; Z83.3 Family history of diabetes mellitus; Z86.73 Personal history of transient ischemic attack (TIA), and cerebral infarction without residual deficits
CPT/HCPCS: 71020; 80048; 80051; 81001; 82565; 82947; 83036; 83605; 83735; 84100; 84484; 84520; 85025; 85027; 85610; 85730; 86850; 86900; 86901; 87086; 88108; 88305; 94640

== ENCOUNTER 2017-06-03 00:30 | Inpatient (IN) | payer BC, OTHER ==
[2017-06-03 00:54] LABS: Glucose,Whole Blood 233 mg/dL (75-99)
--- NOTE | 2017-06-03 00:59 | ED ---
Neuro HPI - General Chief Complaint: Neuro Symptoms/Deficit Stated Complaint: Left side numbness, facial numbness Time Seen by Provider: 06/03/17 00:42 Source: patient Mode of arrival: wheelchair Limitations: no limitations - History of Present Illness Is the patient presenting with stroke symptoms?: Yes Last Known Well Date: 06/02/17 Last Known Well Time: 23:30 Initial Comments: This patient is a 51-year-old woman who presents to be evaluated for numbness of the left face and hand as well as left arm weakness. The patient states that the symptoms are reminding her of a "mini stroke" that she had a number of years ago. She states the symptoms came on approximately an hour and a half before, while she was standing and talking with her . The patient denies any change in vision, speech or swallowing. She is not having any headache, neck pain, chest or abdominal pain. Location: left face, left arm History of same: Yes Place: home Severity: mild Quality: weak, numb Improves With: none Worsens With: none On Anticoagulants: No Context: sudden onset Associated Symptoms: denies other symptoms Treatments Prior to Arrival: none - Related Data Home Medications: Home Medications Medication Instructions Recorded Confirmed Atorvastatin Calcium [Lipitor] 40 mg PO HS 01/20/16 06/03/17 metFORMIN HCL [Glucophage] 500 mg PO TID 01/20/16 06/03/17 Aspirin 81 mg PO DAILY 03/03/17 06/03/17 Empagliflozin [Jardiance] 25 mg PO DAILY 03/03/17 06/03/17 Gabapentin [Neurontin] 400 mg PO TID 03/03/17 06/03/17 Ipratropium-Albuterol Nebulize 3 ml INHALATION RT-QID PRN 03/03/17 06/03/17 [Duoneb 0.5 mg-3 mg/3 ml Soln] Nitroglycerin Sl Tabs [Nitrostat] 0.4 mg SUBLINGUAL Q5M PRN 03/03/17 06/03/17 Omeprazole [PriLOSEC] 20 mg PO AC-BID PRN 03/03/17 06/03/17 Previous Rx's Medication Instructions Recorded Budesonide-Formot 160-4.5 Mcg 2 puff INHALATION RT-BID PRN #1 03/12/17 [Symbicort 160-4.5 Mcg Inhaler] Magnesium Oxide [Mag-Ox] 400 mg PO BID 10 Days 03/12/17 Metoprolol Tartrate [Lopressor] 6.125 mg PO BID #60 tab 03/12/17 Tiotropium 18 Mcg/Puff [Spiriva] 1 puff INHALATION RT-DAILY #1 03/12/17 inhaler Allergies/Adverse Reactions: Allergies Allergy/AdvReac Type Severity Reaction Status Date / Time No Known Allergies Allergy Verified 05/17/17 13:50 Review of Systems ROS Statement: Those systems with pertinent positive or pertinent negative responses have been documented in the HPI. ROS Other: All systems not noted in ROS Statement are negative. Constitutional: Denies: fever, chills Eyes: Denies: vision change Respiratory: Denies: cough, dyspnea Cardiovascular: Denies: chest pain, palpitations, syncope Gastrointestinal: Denies: abdominal pain, nausea, vomiting Genitourinary: Denies: dysuria, frequency Musculoskeletal: Denies: back pain Skin: Denies: rash Neurological: Reports: weakness (Left arm), numbness (left Face and left arm). Denies: headache Hematological/Lymphatic: Denies: easy bleeding General Exam Limitations: no limitations General appearance: alert, in no apparent distress Head exam: Present: atraumatic, normocephalic Eye exam: Present: normal appearance. Absent: scleral icterus, conjunctival injection ENT exam: Present: normal oropharynx, mucous membranes dry Neck exam: Present: normal inspection, full ROM, other (No carotid bruit) Respiratory exam: Present: wheezes (Trace expiratory wheeze). Absent: respiratory distress, rales, rhonchi, stridor, decreased breath sounds, prolonged expiratory Cardiovascular Exam: Present: tachycardia (Rate approximately 108 at my exam), normal heart sounds. Absent: systolic murmur, diastolic murmur, rubs, gallop GI/Abdominal exam: Present: soft. Absent: tenderness, guarding, rebound, mass Extremities exam: Present: normal inspection, normal capillary refill. Absent: pedal edema, calf tenderness Back exam: Present: normal inspection. Absent: CVA tenderness (R), CVA tenderness (L) Skin exam: Present: warm, dry, intact, normal color. Absent: rash Stroke MDM - Lab Data Result diagrams: 06/03/17 01:01 06/03/17 01:01 Lab Results 06/03/17 06/03/17 06/03/17 Range/Units 00:49 01:01 01:01 WBC 12.7 H (3.8-10.6) k/uL RBC 4.78 (3.80-5.40) m/uL Hgb 14.9 (11.4-16.0) gm/dL Hct 46.3 H (34.0-46.0) % MCV 96.9 (80.0-100.0) fL MCH 31.1 (25.0-35.0) pg MCHC 32.1 (31.0-37.0) g/dL RDW 13.9 (11.5-15.5) % Plt Count 395 (150-450) k/uL Neutrophils % 59 % Lymphocytes % 30 % Monocytes % 5 % Eosinophils % 3 % Basophils % 2 % Neutrophils # 7.5 (1.3-7.7) k/uL Lymphocytes # 3.8 (1.0-4.8) k/uL Monocytes # 0.6 (0-1.0) k/uL Eosinophils # 0.3 (0-0.7) k/uL Basophils # 0.2 (0-0.2) k/uL PT (9.0-12.0) sec INR (<1.2) APTT (22.0-30.0) sec Sodium 135 L (137-145) mmol/L Potassium 4.3 (3.5-5.1) mmol/L Chloride 103 (98-107) mmol/L Carbon Dioxide 18 L (22-30) mmol/L Anion Gap 14 mmol/L BUN 16 (7-17) mg/dL Creatinine 0.50 L (0.52-1.04) mg/dL Est GFR (MDRD) Af Amer >60 (>60 ml/min/1.73 sqM) Est GFR (MDRD) Non-Af >60 (>60 ml/min/1.73 sqM) Glucose 254 H (74-99) mg/dL POC Glucose (mg/dL) 233 H (75-99) mg/dL POC Glu Facility Maintenance Technician ID Tammy Delgado Calcium 9.8 (8.4-10.2) mg/dL Total Bilirubin 0.4 (0.2-1.3) mg/dL AST 26 (14-36) U/L ALT 30 (9-52) U/L Alkaline Phosphatase 137 H (38-126) U/L Total Creatine Kinase (30-135) U/L CK-MB (CK-2) (0.0-2.4) ng/mL CK-MB (CK-2) Rel Index Troponin I (0.000-0.034) ng/mL Total Protein 7.2 (6.3-8.2) g/dL Albumin 4.0 (3.5-5.0) g/dL 06/03/17 06/03/17 Range/Units 01:01 01:01 WBC (3.8-10.6) k/uL RBC (3.80-5.40) m/uL Hgb (11.4-16.0) gm/dL Hct (34.0-46.0) % MCV (80.0-100.0) fL MCH (25.0-35.0) pg MCHC (31.0-37.0) g/dL RDW (11.5-15.5) % Plt Count (150-450) k/uL Neutrophils % % Lymphocytes % % Monocytes % % Eosinophils % % Basophils % % Neutrophils # (1.3-7.7) k/uL Lymphocytes # (1.0-4.8) k/uL Monocytes # (0-1.0) k/uL Eosinophils # (0-0.7) k/uL Basophils # (0-0.2) k/uL PT 10.3 (9.0-12.0) sec INR 1.0 (<1.2) APTT 25.2 (22.0-30.0) sec Sodium (137-145) mmol/L Potassium (3.5-5.1) mmol/L Chloride (98-107) mmol/L Carbon Dioxide (22-30) mmol/L Anion Gap mmol/L BUN (7-17) mg/dL Creatinine (0.52-1.04) mg/dL Est GFR (MDRD) Af Amer (>60 ml/min/1.73 sqM) Est GFR (MDRD) Non-Af (>60 ml/min/1.73 sqM) Glucose (74-99) mg/dL POC Glucose (mg/dL) (75-99) mg/dL POC Glu Facility Maintenance Technician ID Calcium (8.4-10.2) mg/dL Total Bilirubin (0.2-1.3) mg/dL AST (14-36) U/L ALT (9-52) U/L Alkaline Phosphatase (38-126) U/L Total Creatine Kinase 36 (30-135) U/L CK-MB (CK-2) 1.3 (0.0-2.4) ng/mL CK-MB (CK-2) Rel Index 3.6 Troponin I <0.012 (0.000-0.034) ng/mL Total Protein (6.3-8.2) g/dL Albumin (3.5-5.0) g/dL - EKG Data -: EKG Interpreted by Me EKG shows normal: sinus rhythm, axis (Normal), intervals (Normal), QRS complexes (Normal), ST-T waves (Normal) Rate: tachycardia (Rate approximately 116 bpm) Past Medical History Past Medical History: COPD, CVA/TIA, Diabetes Mellitus, GERD/Reflux, Skin Disorder, Vascular Disorder Additional Past Medical History / Comment(s): neuropathy, TIA 2015-no residual effects, recent stress test, wound left heel History of Any Multi-Drug Resistant Organisms: None Reported Past Surgical History: Cholecystectomy, Tubal Ligation Past Anesthesia/Blood Transfusion Reactions: No Reported Reaction Past Psychological History: Depression Smoking Status: Current every day smoker Past Alcohol Use History: None Reported Past Drug Use History: None Reported - Past Family History Mother Family Medical History: CVA/TIA Additional Family Medical History / Comment(s): borderline diabetic Father Family Medical History: Congestive Heart Failure (CHF), Diabetes Mellitus, Myocardial Infarction ([place]) Brother(s) Family Medical History: Diabetes Mellitus, Sleep Apnea/CPAP/BIPAP Sister(s) Family Medical History: AFIB Additional Family Medical History / Comment(s): unsure if sister has DM anymore since she received gastric surgery. Course Vital Signs 06/03/17 06/03/17 06/03/17 00:32 00:51 01:52 Temperature 99.3 F 98.9 F Pulse Rate 119 H 118 H Respiratory 20 17 Rate Blood Pressure 138/72 134/78 O2 Sat by Pulse 95 96 Oximetry Disposition Clinical Impression: Acute ischemic stroke, Hyperglycemia Disposition: ADMITTED IP TO THIS HOSP Condition: Fair Referrals: Sky Casiano III, MD [Primary Care Provider] - 1-2 days
[2017-06-03] MEDS ORDERED: SODIUM CHLORIDE 0.9% 1,000 ML IV STA (01:08)
[2017-06-03 01:18] LABS: Basophils # (A) 0.2 k/uL (0-0.2); Basophils % (A) 2 %; CH 32.8; CHCM 33.9; Eosinophils # (A) 0.3 k/uL (0-0.7); Eosinophils % (A) 3 %; HCT 46.3 % (34.0-46.0); HDW 2.27; HGB 14.9 gm/dL (11.4-16.0); Luc # (Auto) 0.27; Luc % (Auto) 2; Lymphocytes # (A) 3.8 k/uL (1.0-4.8); Lymphocytes % (A) 30 %; MCH 31.1 pg (25.0-35.0); MCHC 32.1 g/dL (31.0-37.0); MCV 96.9 fL (80.0-100.0); Mean Platelet Volume 7.8; Monocytes # (A) 0.6 k/uL (0-1.0); Monocytes % (A) 5 %; Neutrophils # (A) 7.5 k/uL (1.3-7.7); Neutrophils % (A) 59 %; RBC 4.78 m/uL (3.80-5.40); RDW 13.9 % (11.5-15.5); WBC 12.7 k/uL (3.8-10.6); WBC (Perox) 11.67
[2017-06-03 01:19] LABS: ALT 30 U/L (9-52); AST 26 U/L (14-36); Alkaline Phosphatase 137 U/L (38-126); Anion Gap 14 mmol/L; Blood Urea Nitrogen 16 mg/dL (7-17); Calcium 9.8 mg/dL (8.4-10.2); Carbon Dioxide 18 mmol/L (22-30); Chloride 103 mmol/L (98-107); Glucose 254 mg/dL (74-99); Non-African American GFR(MDRD) >60 (>60 ml/min/1.73 sqM); Potassium 4.3 mmol/L (3.5-5.1); Sodium 135 mmol/L (137-145); Total Bilirubin 0.4 mg/dL (0.2-1.3); Total Protein 7.2 g/dL (6.3-8.2)
[2017-06-03 01:29] LABS: Creatine Kinase 36 U/L (30-135)
--- NOTE | 2017-06-03 01:31 | CT ---
EXAM: CT Head Without Intravenous Contrast CLINICAL HISTORY: Reason: Neuro Deficits TECHNIQUE: Axial computed tomography images of the head/brain without intravenous contrast. CTDI is 57.40 mGy and DLP is 1061.40 mGy-cm. This CT exam was performed using one or more of the following dose reduction techniques: automated exposure control, adjustment of the mA and/or kV according to patient size, and/or use of iterative reconstruction technique. COMPARISON: 11/15/2015 FINDINGS: Brain: Small area of decreased attenuation is seen involving the high right probable frontal lobe with loss of monet-white differentiation raising concern for an acute infarct (series 9, image 38). Prominence of the cortical sulci and basal cisterns are again seen indicating atrophic changes not consistent with the patient's age. No hemorrhage. Ventricles: Unchanged. No ventriculomegaly. Bones/joints: Unremarkable. No acute fracture. Soft tissues: Unremarkable. Sinuses: Partial opacification of the anterior ethmoid air cells is seen, which may represent sinusitis. Mastoid air cells: Unremarkable as visualized. No mastoid effusion. IMPRESSION: Small area of decreased attenuation is seen involving the high right probable frontal lobe with loss of monet-white differentiation raising concern for an acute infarct. MRI of the brain is recommended for further evaluation. Critical Value Communications 06/03/17 01:28 Call Doctor Regarding Stroke, called Dr. Kuo on 06/03 01:28 (-04:00)
[2017-06-03 01:36] LABS: Partial Thromboplastin Time 25.2 sec (22.0-30.0); Prothrombin Time 10.3 sec (9.0-12.0)
[2017-06-03] MEDS ORDERED: ASPIRIN 81 MG CHEW PO STA (01:39)
[2017-06-03 01:42] LABS: Creatine Kinase MB 1.3 ng/mL (0.0-2.4); Troponin I <0.012 ng/mL (0.000-0.034)
[2017-06-03] MEDS ORDERED: SYMBICORT 160-4.5 MCG INHALER INHALATION PRN (02:04)
[2017-06-03] MEDS ORDERED: PANTOPRAZOLE 40 MG TABLET PO PRN (02:04)
[2017-06-03] MEDS ORDERED: NITROGLYCERIN SL TABS 0.4 MG TAB SUBLINGUAL PRN (02:04)
[2017-06-03] MEDS ORDERED: INSULIN REGULAR 100 UNIT/ML VIAL SQ STA (02:05)
--- NOTE | 2017-06-03 02:11 | XR ---
EXAM: XR Chest, 1 View CLINICAL HISTORY: Reason: altered mental status TECHNIQUE: Frontal view of the chest. COMPARISON: 03/08/2017 FINDINGS: Lungs: Unremarkable. No consolidation. Pleural space: Unremarkable. No pneumothorax. Heart: Unremarkable. No cardiomegaly. Mediastinum: Unremarkable. Bones/joints: Unremarkable. IMPRESSION: Normal chest x-ray.
[2017-06-03] MEDS: ACETAMINOPHEN TAB 325 MG TAB PO PRN ×3 (02:45→21:55)
[2017-06-03] MEDS: SODIUM CHLORIDE 0.9% 1,000 ML IV SCH ×3 (02:47→21:58)
[2017-06-03 03:46] VITALS: BMI 35.4
[2017-06-03] MEDS: INSULIN LISPRO (humaLOG) 300 UNIT/3 ML VIAL SQ SCH ×4 (06:51→21:45)
[2017-06-03 06:53] LABS: Creatine Kinase 29 U/L (30-135)
[2017-06-03 06:54] LABS: Glucose,Whole Blood 126 mg/dL (75-99)
[2017-06-03 07:06] LABS: Troponin I <0.012 ng/mL (0.000-0.034)
[2017-06-03] MEDS: metFORMIN 500 MG TAB PO SCH ×3 (08:34→21:47)
[2017-06-03] MEDS: GABAPENTIN 400 MG CAP PO SCH ×3 (08:38→21:46)
[2017-06-03] MEDS: IPRATROPIUM-ALBUTEROL 3 ML NEB INHALATION PRN (08:39)
[2017-06-03] MEDS: MAGNESIUM OXIDE 400 MG TAB PO SCH ×2 (08:39→21:46)
[2017-06-03] MEDS: METOPROLOL TARTRATE 12.5 MG TAB PO SCH ×2 (08:39→21:46)
[2017-06-03] MEDS: TIOTROPIUM 18 MCG/PUFF INHALER INHALATION SCH (08:39)
[2017-06-03] MEDS ORDERED: FAMOTIDINE 20 MG/2 ML VIAL IV SCH (09:00)
[2017-06-03] MEDS ORDERED: NON-FORMULARY DRUG (Empagliflozin [Jardiance] 25 MG) PO SCH (09:00)
--- NOTE | 2017-06-03 09:48 | US ---
EXAMINATION TYPE: US carotid duplex BILAT DATE OF EXAM: 06/03/2017 COMPARISON: US 2016 CLINICAL HISTORY: Stenosis. Left arm numbness EXAM MEASUREMENTS: RIGHT: Peak Systolic Velocity (PSV) cm/sec ----- Right CCA: 42.8 ----- Right ICA: 32.9 ----- Right ECA: 135.7 ICA/CCA ratio: 0.8 RIGHT: End Diastole cm/sec ----- Right CCA: 6.5 ----- Right ICA: 10.9 ----- Right ECA: 17.5 LEFT: Peak Systolic Velocity (PSV) cm/sec ----- Left CCA: 90.3 ----- Left ICA: 499.2 ----- Left ECA: 206.0 ICA/CCA ratio: 5.5 LEFT: End Diastole cm/sec ----- Left CCA: 38.6 ----- Left ICA: 200.6 ----- Left ECA: 38.7 VERTEBRALS (direction of flow): Right Vertebral: Antegrade Left Vertebral: Antegrade Atherosclerotic changes bilaterally L>R. Very slow flow right ICA, Increased flow right ECA. High gra de stenosis left ICA. Increased flow left ECA. Grayscale, color and spectral Doppler imaging performed of the carotid arteries IMPRESSION: Hemodynamic significant stenosis involving the proximal internal carotid artery on the l eft corresponding to approximately greater than 70% diameter reduction by Doppler criteria, an indire ct measurement of carotid stenosis. Carotid CTA or MRA can be performed for better evaluation Criteria for Assigning % of Stenosis / Diameter reduction (Estimation based on the indirect measurements of the internal carotid artery velocities (ICA PSV). 1. Normal (no stenosis)=ICA PSV < 125 cm/s: ratio < 2.0: ICA EDV<40 cm/s. 2. Less than 50% stenosis=ICA PSV < 125 cm/s: ratio < 2.0: ICA EDV<40 cm/s. 3. 50 to 69% stenosis=ICA PSV of 125 to 230 cm/s: ration 2.0 ? 4.0: ICA EDV 40-100 cm/s. 4. Greater than 70% stenosis to near occlusion= ICA PSV > 230 cm/s: ratio > 4.0: ICA EDV > 100 cm/s. 5. Near occlusion= ICA PSV velocities may be low or undetectable: variable ratio and ICA EDV. 6. Total occlusion=unable to detect flow.
--- NOTE | 2017-06-03 11:12 | ECHOF ---
Referral Reason:Thrombus MEASUREMENTS -------- HEIGHT: 157.5 cm WEIGHT: 87.5 kg BP: 140/77 RVIDd: 2.9 cm (< 3.3) IVSd: 1.0 cm (0.6 - 1.1) LVIDd: 3.7 cm (3.9 - 5.3) LVPWd: 1.1 cm (0.6 - 1.1) IVSs: 1.3 cm LVIDs: 3.1 cm LVPWs: 1.6 cm LA Diam: 3.8 cm (2.7 - 3.8) LAESV Index (A-L): 20.59 ml/m Ao Diam: 2.7 cm (2.0 - 3.7) AV Cusp: 1.5 cm (1.5 - 2.6) MV EXCURSION: 18.872 mm (> 18.000) MV EF SLOPE: 119 mm/s (70 - 150) EPSS: 0.2 cm MV E Jose Eduardo: 0.90 m/s MV DecT: 127 ms MV A Jose Eduardo: 1.11 m/s MV E/A Ratio: 0.81 FINDINGS -------- Sinus rhythm. This was a technically adequate study. The left ventricular size is normal. There is borderline concentric left ventricular hypertrophy. Overall left ventricular systolic function is normal with, an EF between 65 - 70 %. The right ventricle is normal in size. Normal LA size by volume 22+/-6 ml/m2. The right atrium is normal in size. There is mild aortic valve sclerosis. There is trace to mild mitral regurgitation. The tricuspid valve appears structurally normal. There is no pulmonic regurgitation present. The aortic root size is normal. Normal inferior vena cava with normal inspiratory collapse consistent with estimated right atrial pressure of 5 mmHg. There is no pericardial effusion. CONCLUSIONS -------- 1. Sinus rhythm. 2. There is trace to mild mitral regurgitation. 3. The tricuspid valve appears structurally normal. 4. There is no pulmonic regurgitation present. 5. The aortic root size is normal. 6. Normal inferior vena cava with normal inspiratory collapse consistent with estimated right atrial pressure of 5 mmHg. 7. There is no pericardial effusion. 8. This was a technically adequate study. 9. The left ventricular size is normal. 10. There is borderline concentric left ventricular hypertrophy. 11. Overall left ventricular systolic function is normal with, an EF between 65 - 70 %. 12. The right ventricle is normal in size. 13. Normal LA size by volume 22+/-6 ml/m2. 14. The right atrium is normal in size. 15. There is mild aortic valve sclerosis. MUSIC ARRANGER: Cinda Hussein RDCS
[2017-06-03 11:33] LABS: Glucose,Whole Blood 232 mg/dL (75-99)
[2017-06-03 12:12] LABS: Hemoglobin A1C 8.1 % (4.2-6.1)
[2017-06-03 16:45] LABS: Glucose,Whole Blood 185 mg/dL (75-99)
[2017-06-03 20:37] LABS: Glucose,Whole Blood 193 mg/dL (75-99)
[2017-06-03] MEDS ORDERED: ATORVASTATIN 40 MG TAB PO SCH (21:00)
--- NOTE | 2017-06-03 21:38 | P.HPIM ---
History of Present Illness H&P Date: 06/03/17 Chief Complaint: Left arm numbness and weakness This patient is a 51-year-old woman with a past medical history of CVA/TIA with no residual weakness, COPD, diabetes mellitus type 2 insulin-dependent who presents to be evaluated for numbness of the left face and hand as well as left arm weakness. The patient states that the symptoms are reminding her of a " mini stroke" that she had a number of years ago. She states the symptoms came on approximately an hour and a half before, while she was standing and talking with her . The patient denies any change in vision, speech or swallowing. She is not having any headache, neck pain, chest or abdominal pain. Patient otherwise denied any fever or chills. No recent illnesses. Patient denied any bowel or bladder incontinence. No difficulty in swallowing. No dysarthria. Patient had CT head in the ER showed small low attenuation in the right high frontal area suggestive of acute infarct. 2-D echo showed normal ejection fraction. No significant valvular abnormality Carotid duplex showed proximal left internal carotid artery stenosis greater than 70% Review of Systems CONSTITUTIONAL: No fever, no malaise, no fatigue. HEENT: No recent visual problems or hearing problems. Denied any sore throat. CARDIOVASCULAR: No chest pain, orthopnea, PND, no palpitations, no syncope. PULMONARY: , no hemoptysis. GASTROINTESTINAL: No diarrhea, no nausea, no vomiting, no abdominal pain. Normoactive bowel sounds. NEUROLOGICAL: No headaches or dizziness. Patient has left arm numbness and weakness as well as left facial numbness. HEMATOLOGICAL: Denies any bleeding or petechiae. GENITOURINARY: Denies any burning micturition, frequency, or urgency. MUSCULOSKELETAL/RHEUMATOLOGICAL: Denies any joint pain, swelling, or any muscle pain. ENDOCRINE: Denies any polyuria or polydipsia. The rest of the 14-point review of systems is negative. Past Medical History Past Medical History: COPD, CVA/TIA, Diabetes Mellitus, GERD/Reflux, Skin Disorder, Vascular Disorder Additional Past Medical History / Comment(s): neuropathy, TIA 2016-no residual effects, recent stress test, wound left heel History of Any Multi-Drug Resistant Organisms: None Reported Past Surgical History: Cholecystectomy, Tubal Ligation Past Anesthesia/Blood Transfusion Reactions: No Reported Reaction Past Psychological History: Depression Smoking Status: Current every day smoker Past Alcohol Use History: None Reported Additional Past Alcohol Use History / Comment(s): down to <10 cigs/day, has smoked since age of 16, used to smoke 1ppd to 1 1/2ppd Past Drug Use History: None Reported - Past Family History Mother Family Medical History: CVA/TIA Additional Family Medical History / Comment(s): borderline diabetic Father Family Medical History: Congestive Heart Failure (CHF), Diabetes Mellitus, Myocardial Infarction ([place]) Brother(s) Family Medical History: Diabetes Mellitus, Sleep Apnea/CPAP/BIPAP Sister(s) Family Medical History: AFIB Additional Family Medical History / Comment(s): unsure if sister has DM anymore since she received gastric surgery. Medications and Allergies Home Medications Medication Instructions Recorded Confirmed Type Atorvastatin Calcium [Lipitor] 40 mg PO HS 01/20/16 06/03/17 History metFORMIN HCL [Glucophage] 500 mg PO AC-TID 01/20/16 06/03/17 History Aspirin 81 mg PO DAILY 03/03/17 06/03/17 History Empagliflozin [Jardiance] 25 mg PO DAILY 03/03/17 06/03/17 History Gabapentin [Neurontin] 400 mg PO TID 03/03/17 06/03/17 History Ipratropium-Albuterol Nebulize 3 ml INHALATION RT-Q4H PRN 03/03/17 06/03/17 History [Duoneb 0.5 mg-3 mg/3 ml Soln] Nitroglycerin Sl Tabs [Nitrostat] 0.4 mg SUBLINGUAL Q5M PRN 03/03/17 06/03/17 History Omeprazole [PriLOSEC] 20 mg PO AC-BID PRN 03/03/17 06/03/17 History Allergies Allergy/AdvReac Type Severity Reaction Status Date / Time No Known Allergies Allergy Verified 05/17/17 13:50 Physical Exam Vitals: Vital Signs Temp Pulse Pulse Pulse Resp BP BP 06/03/17 08:58 96 06/03/17 08:39 96 06/03/17 08:00 98.2 F 95 95 18 140/84 06/03/17 03:10 99.0 F 105 H 16 140/77 06/03/17 03:01 101 H 18 141/80 06/03/17 02:46 106 H 17 164/81 08/17/17 02:31 100 18 133/81 06/03/17 02:16 104 H 17 127/79 06/03/17 02:01 104 H 16 138/79 06/03/17 01:52 98.9 F 06/03/17 01:46 110 H 17 141/79 06/03/17 01:31 104 H 18 137/69 06/03/17 01:16 108 H 17 146/81 06/03/17 00:51 118 H 17 134/78 06/03/17 00:32 99.3 F 119 H 20 138/72 Pulse Ox 06/03/17 08:58 06/03/17 08:39 06/03/17 08:00 95 06/03/17 03:10 97 06/03/17 03:01 97 06/03/17 02:46 100 06/03/17 02:31 98 06/03/17 02:16 99 06/03/17 02:01 06/03/17 01:52 06/03/17 01:46 06/03/17 01:31 06/03/17 01:16 95 06/03/17 00:51 96 06/03/17 00:32 95 Intake and Output 06/02/17 06/03/17 06/03/17 22:59 06:59 14:59 Intake Total 400 Balance 400 Intake: Intake, IV Titration 400 Amount Sodium Chloride 0.9% 1, 400 000 ml @ 100 mls/hr IV . Q10H [facility] Rx#:[id number] Other: Voiding Method Toilet Toilet Weight 87.8 kg PHYSICAL EXAMINATION: Patient is lying in the bed comfortably, no acute distress, awake alert and oriented.. HEENT: Normocephalic. Neck is supple. Pupils reactive. Nostrils clear. Oral cavity is moist. Ears reveal no drainage. Neck reveals no JVD, carotid bruits, or thyromegaly. CHEST EXAMINATION: Trachea is central. Symmetrical expansion. Lung nicole clear to auscultation and percussion. CARDIAC: Normal S1, S2 with no gallops. No murmurs ABDOMEN: Soft. Bowel sounds normal. No organomegaly. No abdominal bruits. Extremities reveal no edema. No clubbing or cyanosis Neurologically awake, alert, oriented x3 . Left upper extremity muscle strength 4 out of 5. No facial droop Skin: no rash or skin lesions Musculoskeletal: no joint swelling or deformity. Results CBC & Chem 7: 06/03/17 01:01 06/03/17 01:01 Labs: Abnormal Lab Results - Last 24 Hours (Table) 06/03/17 06/03/17 06/03/17 Range/Units 00:49 01:01 01:01 WBC 12.7 H (3.8-10.6) k/uL Hct 46.3 H (34.0-46.0) % Sodium 135 L (137-145) mmol/L Carbon Dioxide 18 L (22-30) mmol/L Creatinine 0.50 L (0.52-1.04) mg/dL Glucose 254 H (74-99) mg/dL POC Glucose (mg/dL) 233 H (75-99) mg/dL Alkaline Phosphatase 137 H (38-126) U/L Total Creatine Kinase (30-135) U/L 06/03/17 06/03/17 06/03/17 Range/Units 06:06 06:50 11:29 WBC (3.8-10.6) k/uL Hct (34.0-46.0) % Sodium (137-145) mmol/L Carbon Dioxide (22-30) mmol/L Creatinine (0.52-1.04) mg/dL Glucose (74-99) mg/dL POC Glucose (mg/dL) 126 H 232 H (75-99) mg/dL Alkaline Phosphatase (38-126) U/L Total Creatine Kinase 29 L (30-135) U/L Thrombosis Risk Factor Assmnt - Choose All That Apply Each Factor Represents 1 point: Abnormal pulmonary function (COPD), Age 41-60 years Other Risk Factors: No Other congenital or acquired thrombophilia - If yes, enter type in comment: Yes Each Risk Factor Represents 5 Points: Stroke (< 1 month) Thrombosis Risk Factor Assessment Total Risk Factor Score: 7 Thrombosis Risk Factor Assessment Level: High Risk Assessment and Plan Plan: Acute CVA involving small right frontal area with left upper extremity weakness Left proximal internal carotid artery stenosis greater than 70% Uncontrolled diabetes mellitus with HbA1c 8.1 Diabetic neuropathy History of CVA/TIA with no residual weakness Hyperglycemia on admission Morbid obesity with BMI of 35.4 COPD stable GERD DVT prophylaxis Plan: Patient will will be continued on aspirin. Continue the telemetry. Neurology has been consulted. We will also consult vascular surgery for left proximal internal character artery stenosis. We'll continue with the insulin regimen and follow closely. Further recommendations based on the clinical course. Time with Patient: Greater than 30
[2017-06-03] MEDS: FAMOTIDINE 20 MG TAB PO SCH (21:45)
--- NOTE | 2017-06-03 21:55 | P.CNNES ---
History of Present Illness Consult date: 06/03/17 History of Present Illness: The patient 51-year-old right-handed white female who states that her to the hospital last night with acute onset left arm and face numbness. The left face numbness was very transient lasting for 10 minutes but the left are hand numbness persists. She gives a history of having had a stroke/mini stroke in October 2015 at which time she had left hand and face numbness which was very transient. Has been she has been taking a baby aspirin since then however. Other neurologic complaints such as visual changes or problems with her legs or balance or coordination. She is being treated for a wound and gangrene in the left ankle and foot. She denied any headache headache or neck pain. He T of the head which showed a small area of possible infarct in the right frontal lobe. She had a carotid ultrasound which showed's greater than 70% stenosis on the left carotid Review of Systems Constitutional: Denies chills, Denies fever Eyes: denies blurred vision, denies pain Ears, nose, mouth and throat: Denies headache, Denies sore throat Cardiovascular: Denies chest pain, Denies shortness of breath Respiratory: Denies cough Neurological: Denies numbness, Denies weakness Psychiatric: Denies anxiety, Denies depression Past Medical History Past Medical History: COPD, CVA/TIA, Diabetes Mellitus, GERD/Reflux, Skin Disorder, Vascular Disorder Additional Past Medical History / Comment(s): neuropathy, TIA 2016-no residual effects, recent stress test, wound left heel History of Any Multi-Drug Resistant Organisms: None Reported Past Surgical History: Cholecystectomy, Tubal Ligation Past Anesthesia/Blood Transfusion Reactions: No Reported Reaction Past Psychological History: Depression Smoking Status: Current every day smoker Past Alcohol Use History: None Reported Additional Past Alcohol Use History / Comment(s): down to <10 cigs/day, has smoked since age of 16, used to smoke 1ppd to 1 1/2ppd Past Drug Use History: None Reported - Past Family History Mother Family Medical History: CVA/TIA Additional Family Medical History / Comment(s): borderline diabetic Father Family Medical History: Congestive Heart Failure (CHF), Diabetes Mellitus, Myocardial Infarction (OR) Brother(s) Family Medical History: Diabetes Mellitus, Sleep Apnea/CPAP/BIPAP Sister(s) Family Medical History: AFIB Additional Family Medical History / Comment(s): unsure if sister has DM anymore since she received gastric surgery. Medications and Allergies Home Medications Medication Instructions Recorded Confirmed Type Atorvastatin Calcium [Lipitor] 40 mg PO HS 01/20/16 06/03/17 History metFORMIN HCL [Glucophage] 500 mg PO AC-TID 01/20/16 06/03/17 History Aspirin 81 mg PO DAILY 03/03/17 06/03/17 History Empagliflozin [Jardiance] 25 mg PO DAILY 03/03/17 06/03/17 History Gabapentin [Neurontin] 400 mg PO TID 03/03/17 06/03/17 History Ipratropium-Albuterol Nebulize 3 ml INHALATION RT-Q4H PRN 03/03/17 06/03/17 History [Duoneb 0.5 mg-3 mg/3 ml Soln] Nitroglycerin Sl Tabs [Nitrostat] 0.4 mg SUBLINGUAL Q5M PRN 03/03/17 06/03/17 History Omeprazole [PriLOSEC] 20 mg PO AC-BID PRN 03/03/17 06/03/17 History Allergies Allergy/AdvReac Type Severity Reaction Status Date / Time No Known Allergies Allergy Verified 05/17/17 13:50 Physical Examination - Vital Signs Vital Signs: Vital Signs Temp Pulse Pulse Pulse Resp BP BP 06/03/17 20:00 98.3 F 97 16 146/77 06/03/17 16:00 98.5 F 95 92 18 139/80 06/03/17 12:00 98.0 F 95 86 18 125/73 06/03/17 08:58 96 06/03/17 08:39 96 06/03/17 08:00 98.2 F 95 95 18 140/84 06/03/17 03:10 99.0 F 105 H 16 140/77 06/03/17 03:01 101 H 18 141/80 06/03/17 02:46 106 H 17 164/81 06/03/17 02:31 100 18 133/81 06/03/17 02:16 104 H 17 127/79 06/03/17 02:01 104 H 16 138/79 06/03/17 01:52 98.9 F 06/03/17 01:46 110 H 17 141/79 06/03/17 01:31 104 H 18 137/69 06/03/17 01:16 108 H 17 146/81 06/03/17 00:51 118 H 17 134/78 06/03/17 00:32 99.3 F 119 H 20 138/72 Pulse Ox 06/03/17 20:00 99 06/03/17 16:00 96 06/03/17 12:00 97 06/03/17 08:58 06/03/17 08:39 06/03/17 08:00 95 06/03/17 03:10 97 06/03/17 03:01 97 06/03/17 02:46 100 06/03/17 02:31 98 06/03/17 02:16 99 06/03/17 02:01 06/03/17 01:52 06/03/17 01:46 06/03/17 01:31 06/03/17 01:16 95 06/03/17 00:51 96 06/03/17 00:32 95 Intake and Output 06/03/17 06/03/17 06/03/17 06:59 14:59 22:59 Intake Total 556 007 9987 Balance 953 929 7419 Intake: Intake, IV Titration 811 545 0925 Amount Sodium Chloride 0.9% 1, 534 575 3672 000 ml @ 100 mls/hr IV . Q10H STACIE Rx#:[id number] Oral 240 Other: Voiding Method Toilet Toilet Toilet # Voids 500 Weight 87.8 kg - Constitutional General appearance: obese - EENT EENT: PERRL, hearing intact, vision intact - Respiratory Respiratory: lungs clear - Cardiovascular Cardiovascular: regular rate, normal S1, normal S2 - Neurologic Mental status she was awake alert and oriented 3 her speech was fluent there was no a aphasia or dysarthria Cranial nerve examination: PERRL, EOMI, VFF, V1/V2/V3 grossly intact, face symmetric, tongue midline Speech examination: intact Sensorimotor examination: intact Detailed motor examination: grossly full strength in all extremities, other Motor examination - left side: 3/5: rn advanced (Hand weakness 3/5) Reflexes: 2+: knee - Psychiatric Psychiatric: mood/affect appropriate Results - Laboratory Findings CBC and BMP: 06/03/17 01:01 06/03/17 01:01 Abnormal Lab Findings: Abnormal Labs 06/03/17 06/03/17 06/03/17 00:49 01:01 01:01 WBC 12.7 H Hct 46.3 H Sodium 135 L Carbon Dioxide 18 L Creatinine 0.50 L Glucose 254 H POC Glucose (mg/dL) 233 H Hemoglobin A1c Alkaline Phosphatase 137 H Total Creatine Kinase 06/03/17 06/03/17 06/03/17 06:06 06:06 06:50 WBC Hct Sodium Carbon Dioxide Creatinine Glucose POC Glucose (mg/dL) 126 H Hemoglobin A1c 8.1 H Alkaline Phosphatase Total Creatine Kinase 29 L 06/03/17 06/03/17 06/03/17 11:29 16:41 20:32 WBC Hct Sodium Carbon Dioxide Creatinine Glucose POC Glucose (mg/dL) 232 H 185 H 193 H Hemoglobin A1c Alkaline Phosphatase Total Creatine Kinase Assessment and Plan (1) Acute ischemic stroke Status: Acute Code(s): I63.9 - CEREBRAL INFARCTION, UNSPECIFIED (2) Left carotid stenosis Status: Acute Code(s): I65.22 - OCCLUSION AND STENOSIS OF LEFT CAROTID ARTERY Plan: The patient is a 51-year-old woman with history of prior stroke October 2015 who presents with new onset left hand weakness. She has had left facial numbness which persisted only for 10 minutes and resolved but her left hand numbness and weakness did not resolve. She is admitted to the hospital with acute stroke. She had a CT of the brain which showed an area of possible ischemic infarct in the right frontal lobe. She will have further evaluation with MRI scan of the brain. Also recommend aspirin 325 mg a day. Recommend vascular surgery consultation for left carotid stenosis
[2017-06-03] MEDS: ASPIRIN 325 MG TAB PO SCH (23:47)
[2017-06-04] MEDS: SODIUM CHLORIDE 0.9% 1,000 ML IV SCH ×2 (02:49→17:14)
[2017-06-04 05:54] LABS: Glucose,Whole Blood 163 mg/dL (75-99)
[2017-06-04 05:57] LABS: Basophils # (A) 0.1 k/uL (0-0.2); Basophils % (A) 1 %; CH 32.7; CHCM 32.7; Eosinophils # (A) 0.3 k/uL (0-0.7); Eosinophils % (A) 3 %; HCT 41.7 % (34.0-46.0); HDW 2.28; HGB 13.3 gm/dL (11.4-16.0); Luc % (Auto) 3; Lymphocytes # (A) 3.3 k/uL (1.0-4.8); Lymphocytes % (A) 35 %; MCH 32.1 pg (25.0-35.0); MCV 100.3 fL (80.0-100.0); Mean Platelet Volume 7.6; Monocytes # (A) 0.5 k/uL (0-1.0); Monocytes % (A) 5 %; Neutrophils % (A) 52 %; RBC 4.16 m/uL (3.80-5.40); RDW 13.7 % (11.5-15.5); WBC 9.5 k/uL (3.8-10.6); WBC (Perox) 9.24
[2017-06-04 06:09] LABS: Anion Gap 10 mmol/L; Blood Urea Nitrogen 16 mg/dL (7-17); Calcium 9.3 mg/dL (8.4-10.2); Carbon Dioxide 17 mmol/L (22-30); Chloride 110 mmol/L (98-107); Cholesterol 255 mg/dL (<200); Glucose 154 mg/dL (74-99); HDL Cholesterol 47 mg/dL (40-60); Non-African American GFR(MDRD) >60 (>60 ml/min/1.73 sqM); Potassium 4.5 mmol/L (3.5-5.1); Sodium 137 mmol/L (137-145)
[2017-06-04] MEDS: INSULIN LISPRO (humaLOG) 300 UNIT/3 ML VIAL SQ SCH ×3 (07:02→17:11)
[2017-06-04] MEDS: METOPROLOL TARTRATE 12.5 MG TAB PO SCH (08:14)
[2017-06-04] MEDS: metFORMIN 500 MG TAB PO SCH ×2 (08:15→17:11)
[2017-06-04] MEDS: GABAPENTIN 400 MG CAP PO SCH ×2 (08:15→17:11)
[2017-06-04] MEDS: ASPIRIN 325 MG TAB PO SCH (08:15)
[2017-06-04] MEDS: MAGNESIUM OXIDE 400 MG TAB PO SCH (08:15)
[2017-06-04] MEDS: FAMOTIDINE 20 MG TAB PO SCH (08:15)
--- NOTE | 2017-06-04 08:49 | CONS ---
Date of consultation: 06-03-17 This is a 51-year-old female well known to me from my office. The patient had bypass graft done by us a few months ago on the left leg. Patient came with history of sudden onset of numbness of the face and left arm and left leg, which lasted for a short period of time. She had similar symptoms in October but with complete recovery. She has no history of loss vision. No history of seizure. SURGICAL HISTORY: Patient had a left fem-pop bypass graft done a few months ago with nonhealing wound to the left leg. Patient has history of smoking in the past. On examination the patient was seen in the room, patient laying comfortably in bed. There is slight weakness noted on the left arm compared to the right arm. Speech is normal. Chest examination shows chest is clear to auscultation. Abdomen is soft. Femoral pulses are present. Patient has small ulcer on the left heel from anterior tibial bypass done a few months ago on the left leg. Patient had carotid ultrasound, which showed left carotid is about 70% stenosis. Right carotid 16 to 49%. Patient had CT scan of the brain, which showed acute stroke. Plan is patient should be on antiplatelet therapy. Scheduled to have MRI of the brain because the right carotid is within normal limits and right controls the left side of the body and her left carotid has 70% stenosis, which could be incidental finding. We will wait for the MRI report and follow with you. ANNIE
[2017-06-04] MEDS: TIOTROPIUM 18 MCG/PUFF INHALER INHALATION SCH (09:10)
[2017-06-04] MEDS: IPRATROPIUM-ALBUTEROL 3 ML NEB INHALATION PRN (09:10)
[2017-06-04 11:26] VITALS: RESP 16
[2017-06-04 11:53] LABS: Glucose,Whole Blood 218 mg/dL (75-99)
--- NOTE | 2017-06-04 13:22 | MR ---
EXAMINATION TYPE: MR brain wo con DATE OF EXAM: 06/04/2017 COMPARISON: CT brain dated 06/03/2017 HISTORY: Concern for acute stroke TECHNIQUE: Multiplanar, multisequence images of the brain and brainstem is performed without intravenous contras t. FINDINGS: Diffusion weighted images demonstrate areas of cortical and subcortical restricted diffusio n within the distribution of branch vessels of both the right [employer] REPA[employer] SUPERVISOR and MCA as well as subcortical infa rcts restricting diffusion in the left frontal lobe. Other areas within the left parietal lobe that a re hyperintense on DWI demonstrate hyperintensity on ADC map and relate to tissue shine through. Gyri form and subcortical patchy areas of hyperintensity are seen on T2 and FLAIR sequence corresponding t o the areas of cortical and subcortical infarct. Flow void within the right petrous portion of the in ternal carotid artery is not well maintained, representing thrombus. There is no distinct T1 hyperin tensity to suggest hemorrhagic transformation. There is no extra-axial fluid collection. The ventricular system and cisternal spaces are prominent a nd symmetric related to mild atrophy. Midline structures demonstrate a normal morphology. The cranio cervical junction appears within normal limits. The globes are intact. Note is made of nonenlarged ri ght occipital lymph nodes. Left mastoid air cells are partially opacified. Chronic septation is seen within the right maxillary sinus with mild mucosal thickening in the ethmoid sinuses. Note is made of a partially empty sella. There is no cerebellar tonsillar ectopia. IMPRESSION: 1. Acute right cortical and subcortical infarcts in the distribution of branch vessels of the [employer] SUPERVISOR and MCA with diminished flow void of the petrous right internal carotid artery relating to thrombus. Add itional foci of left frontal lobe acute subcortical infarcts raise the possibility of embolic disease . No gross evidence of hemorrhagic transformation. 2. Nonspecific white matter changes, likely on the basis of chronic microangiopathy. Findings were relayed to the patient's nurse Chester by Dr. Robertson at 1316 on 06/04/2018 who will relay the findings to the ordering physician. Additionally critical message was sent to the ordering physician . A Red message has been communicated to Carmen Tran via the [employer] Critical Result system on 06/04/2017 1:19 PM, Message ID [id number].
[2017-06-04] MEDS ORDERED: HEPARIN SODIUM,PORCINE 5,000 UNIT/ML 1 ML VIAL SQ STA (13:49)
[2017-06-04] MEDS ORDERED: HEPARIN SODIUM,PORCINE 5,000 UNIT/ML 1 ML VIAL IV PRN (14:01)
--- NOTE | 2017-06-04 14:28 | P.CRDCN ---
History of Present Illness Consult date: 06/04/17 Reason for Consult (text): KD Chief complaint: Left upper extremity weakness and numbness History of present illness: This is a pleasant Pleasant 51-year-old female patient with a history significant for TIA, COPD, diabetes type 2 with insulin-dependent, hypertension , peripheral vascular disease. Presented to the emergency department with complaints of left-sided face and upper extremity numbness with left arm and hand weakness. Patient underwent carotid duplex did show hemodynamically significant stenosis involving the proximal internal carotid artery on the left however patient had signs of right-sided CVA. MRI of the brain did show acute right cortical and subcortical infarcts in the distribution of branch vessels of the [employer]IST and MCA with diminished flow void of the petrous right internal carotid artery relating to thrombus. Additional foci of left frontal lobe acute subcortical infarcts raise the possibility of embolic disease. We were asked to see the patient in consult for possible KD. Patient did undergo 2-D echo with Doppler that showed an ejection fraction of 65-70%. Patient continues to have significant left arm weakness. Past Medical History Past Medical History: COPD, CVA/TIA, Diabetes Mellitus, GERD/Reflux, Skin Disorder, Vascular Disorder Additional Past Medical History / Comment(s): neuropathy, TIA 2016-no residual effects, recent stress test, wound left heel History of Any Multi-Drug Resistant Organisms: None Reported Past Surgical History: Cholecystectomy, Tubal Ligation Past Anesthesia/Blood Transfusion Reactions: No Reported Reaction Past Psychological History: Depression Smoking Status: Current every day smoker Past Alcohol Use History: None Reported Additional Past Alcohol Use History / Comment(s): down to <10 cigs/day, has smoked since age of 16, used to smoke 1ppd to 1 1/2ppd Past Drug Use History: None Reported - Past Family History Mother Family Medical History: CVA/TIA Additional Family Medical History / Comment(s): borderline diabetic Father Family Medical History: Congestive Heart Failure (CHF), Diabetes Mellitus, Myocardial Infarction ([place]) Brother(s) Family Medical History: Diabetes Mellitus, Sleep Apnea/CPAP/BIPAP Sister(s) Family Medical History: AFIB Additional Family Medical History / Comment(s): unsure if sister has DM anymore since she received gastric surgery. Medications and Allergies Home Medications Medication Instructions Recorded Confirmed Type Atorvastatin Calcium [Lipitor] 40 mg PO HS 01/20/16 06/03/17 History metFORMIN HCL [Glucophage] 500 mg PO AC-TID 01/20/16 06/03/17 History Aspirin 81 mg PO DAILY 03/03/17 06/03/17 History Empagliflozin [Jardiance] 25 mg PO DAILY 03/03/17 06/03/17 History Gabapentin [Neurontin] 400 mg PO TID 03/03/17 06/03/17 History Ipratropium-Albuterol Nebulize 3 ml INHALATION RT-Q4H PRN 03/03/17 06/03/17 History [Duoneb 0.5 mg-3 mg/3 ml Soln] Nitroglycerin Sl Tabs [Nitrostat] 0.4 mg SUBLINGUAL Q5M PRN 03/03/17 06/03/17 History Omeprazole [PriLOSEC] 20 mg PO AC-BID PRN 03/03/17 06/03/17 History Allergies Allergy/AdvReac Type Severity Reaction Status Date / Time No Known Allergies Allergy Verified 05/17/17 13:50 Physical Exam Vitals: Vital Signs Temp Pulse Pulse Pulse Resp BP Pulse Ox 06/04/17 11:25 98.0 F 95 88 16 104/70 95 06/04/17 09:28 92 06/04/17 09:11 88 06/04/17 08:00 98.3 F 95 96 18 98/66 96 06/04/17 04:00 97.5 F L 96 16 110/76 99 06/04/17 00:00 98.5 F 84 16 146/82 98 06/03/17 20:00 98.3 F 97 16 146/77 99 06/03/17 16:00 98.5 F 95 92 18 139/80 96 Intake and Output 06/03/17 06/04/17 06/04/17 22:59 06:59 14:59 Intake Total 1200 1200 958 Balance 1200 1200 958 Intake: Intake, IV Titration 1200 1200 600 Amount Sodium Chloride 0.9% 1, 1200 1200 600 000 ml @ 100 mls/hr IV . Q10H STACIE Rx#:[id number] Oral 358 Other: Voiding Method Toilet Toilet Toilet # Voids 500 Weight 89 kg PHYSICAL EXAMINATION: HEENT: Head is atraumatic, normocephalic. Pupils equal, round. Neck is supple. There is no elevated jugular venous pressure. Positive left carotid bruit. HEART EXAMINATION: Heart sounds regular, S1 and S2 normal. No murmur or gallop heard. CHEST EXAMINATION: Lungs are clear to auscultation and precussion. No chest wall tenderness is noted on palpation or with deep breathing. ABDOMEN: Soft, nontender. Bowel sounds are heard. No organomegaly noted. EXTREMITIES: Diminished peripheral pulses with no evidence of peripheral edema and no calf tenderness noted. NEUROLOGIC patient is awake, alert and oriented x3. Significant left arm and hand weakness noted. . Results 06/04/17 05:28 06/04/17 05:28 Cardiac Enzymes 06/03/17 Range/Units 14:32 Troponin I <0.012 (0.000-0.034) ng/mL Lipids 06/04/17 Range/Units 05:28 Triglycerides 494 H (<150) mg/dL Cholesterol 255 H (<200) mg/dL HDL Cholesterol 47 (40-60) mg/dL CBC 06/04/17 Range/Units 05:28 WBC 9.5 (3.8-10.6) k/uL RBC 4.16 (3.80-5.40) m/uL Hgb 13.3 (11.4-16.0) gm/dL Hct 41.7 (34.0-46.0) % Plt Count 348 (150-450) k/uL Comprehensive Metabolic Panel 06/04/17 Range/Units 05:28 Sodium 137 (137-145) mmol/L Potassium 4.5 (3.5-5.1) mmol/L Chloride 110 H (98-107) mmol/L Carbon Dioxide 17 L (22-30) mmol/L BUN 16 (7-17) mg/dL Creatinine 0.53 (0.52-1.04) mg/dL Glucose 154 H (74-99) mg/dL Calcium 9.3 (8.4-10.2) mg/dL Current Medications Generic Name Dose Route Start Last Admin Trade Name Freq PRN Reason Stop Dose Admin Acetaminophen 650 mg 06/03/17 02:39 06/03/17 21:55 Tylenol Tab PO 650 mg Q6H PRN Administration Pain Albuterol/Ipratropium 3 ml 06/03/17 02:04 06/04/17 09:10 Duoneb 0.5 Mg-3 Mg/3 Ml Soln INHALATION 3 ml RT-QID PRN Administration Dyspnea Aspirin 325 mg 06/04/17 02:03 06/04/17 08:15 Aspirin PO 325 mg DAILY STACEI Administration Atorvastatin Calcium 40 mg 06/03/17 21:00 06/03/17 21:45 Lipitor PO 40 mg HS STACIE Administration Budesonide/Formoterol Fumarate 2 puff 06/03/17 02:04 06/03/17 08:39 Symbicort 160-4.5 Mcg Inhaler INHALATION 2 puff RT-BID PRN Administration Dyspnea Famotidine 20 mg 06/03/17 21:00 06/04/17 08:15 Pepcid PO 20 mg BID STACIE Administration Gabapentin 400 mg 06/03/17 09:00 06/04/17 08:15 Neurontin PO 400 mg TID STACIE Administration Heparin Sodium (Porcine) 0 unit 06/04/17 14:01 Heparin IV PER PROTOCOL PRN Low PTT Protocol Sodium Chloride 1,000 mls @ 100 mls/hr 06/03/17 02:15 06/04/17 02:49 Saline 0.9% IV 100 mls/hr .Q10H STACIE Administration Heparin Sodium/Dextrose 25,000 500 mls @ 20 mls/hr 06/04/17 15:00 06/04/17 14 :12 unit/ IV Solution IV 11.236 units/kg/hr .Q24H STACIE 20 mls/hr Protocol Administration 11.236 UNITS/KG/HR Insulin Human Lispro 0 unit 06/03/17 07:30 06/04/17 12:52 Humalog SQ 3 unit ACHS STACIE Administration Protocol Magnesium Oxide 400 mg 06/03/17 09:00 06/04/17 08:15 Mag-Ox PO 400 mg BID STACIE Administration Metformin HCl 500 mg 06/03/17 09:00 06/04/17 08:15 Glucophage PO 500 mg TID STACIE Administration Metoprolol Tartrate 6.25 mg 06/03/17 09:00 06/04/17 08:14 Lopressor PO 6.25 mg BID STACIE Administration Nitroglycerin 0.4 mg 06/03/17 02:04 Nitrostat SUBLINGUAL Q5M PRN Chest Pain Non-Formulary Medication 25 mg 06/03/17 09:00 Empagliflozin [Jardiance] PO DAILY STACIE Pantoprazole Sodium 40 mg 06/03/17 02:04 Protonix PO AC-BID PRN Heartburn Tiotropium [place] 1 puff 06/03/17 08:00 06/04/17 09:10 Spiriva INHALATION 1 puff RT-DAILY STACIE Administration Intake and Output 06/03/17 06/04/17 06/04/17 22:59 06:59 14:59 Intake Total 1200 1200 958 Balance 1200 1200 958 Intake: Intake, IV Titration 1200 1200 600 Amount Sodium Chloride 0.9% 1, 1200 1200 600 000 ml @ 100 mls/hr IV . Q10H STACIE Rx#:[id number] Oral 358 Other: Voiding Method Toilet Toilet Toilet # Voids 500 Weight 89 kg 06/04/17 05:28 06/04/17 05:28 Assessment and Plan Plan: Assessment and plan #1 CVA #2 previous TIA #3 diabetes mellitus #4 GERD #5 peripheral vascular disease #6 left carotid artery stenosis From cardiology's perspective, we agree with scheduling the patient for KD. Unfortunately patient did eat lunch today. We will schedule the patient for KD on Wednesday with Dr. Apodaca. We'll follow the patient and provide further recommendations accordingly. SUPERVISOR ENROBING note has been reviewed, I agree with a documented findings and plan of care. Patient was seen and examined.
[2017-06-04] MEDS ORDERED: HEPARIN SODIUM,PORCINE/D5W PMX 25,000 UNIT in DEXTROSE/WATER 1 500ML.BAG IV SCH (15:00)
[2017-06-04 17:00] LABS: Glucose,Whole Blood 181 mg/dL (75-99)
[2017-06-04 17:52] VITALS: BP 139/91; PULSE 89; TEMP 98.1
--- NOTE | 2017-06-05 01:09 | P.DS ---
Providers Date of admission: 06/03/17 02:02 Expected date of discharge: 06/04/17 Attending physician: Juan A Smiley Consults: 06/03/17 02:03 Consult Physician Routine Consulting Provider: Wali Tran Consult Reason/Comments: Acute ischemic stroke Do you want consulting provider notified?: Yes 06/03/17 16:27 Consult Physician Routine Consulting Provider: Emanuel Del Real Consult Reason/Comments: Carotid stenosis Do you want consulting provider notified?: Yes 06/04/17 13:44 Consult Physician Routine Consulting Provider: Abdelrahman Chau Consult Reason/Comments: KD Do you want consulting provider notified?: Yes Primary care physician: [facility] Course: Discharge diagnosis: Acute CVA involving small right frontal area with left upper extremity weakness Left proximal internal carotid artery stenosis greater than 70% Uncontrolled diabetes mellitus with HbA1c 8.1 Diabetic neuropathy History of CVA/TIA with no residual weakness Hyperglycemia on admission Morbid obesity with BMI of 35.4 COPD stable GERD DVT prophylaxis This patient is a 51-year-old woman with a past medical history of CVA/TIA with no residual weakness, COPD, diabetes mellitus type 2 insulin-dependent who presents to be evaluated for numbness of the left face and hand as well as left arm weakness. The patient states that the symptoms are reminding her of a " mini stroke" that she had a number of years ago. She states the symptoms came on approximately an hour and a half before, while she was standing and talking with her . The patient denies any change in vision, speech or swallowing. She is not having any headache, neck pain, chest or abdominal pain. Patient otherwise denied any fever or chills. No recent illnesses. Patient denied any bowel or bladder incontinence. No difficulty in swallowing. No dysarthria. Patient had CT head in the ER showed small low attenuation in the right high frontal area suggestive of acute infarct. 2-D echo showed normal ejection fraction. No significant valvular abnormality Carotid duplex showed proximal left internal carotid artery stenosis greater than 70% Patient was continued on aspirin and patient was seen by neurology and vascular surgery. Patient had MRI of the brain showed right cortical and subcortical as well as left frontal foci. Due to critical left carotid stenosis and possible embolic CVA was considered and patient was started on IV heparin. I did discuss with physician at [facility] and was transferred to tertiary care facility for further management. Physical examination Patient is lying in the bed comfortably, no acute distress, awake alert and oriented.. HEENT: Normocephalic. Neck is supple. Pupils reactive. Nostrils clear. Oral cavity is moist. Ears reveal no drainage. Neck reveals no JVD, carotid bruits, or thyromegaly. CHEST EXAMINATION: Trachea is central. Symmetrical expansion. Lung nicole clear to auscultation and percussion. CARDIAC: Normal S1, S2 with no gallops. No murmurs ABDOMEN: Soft. Bowel sounds normal. No organomegaly. No abdominal bruits. Extremities reveal no edema. No clubbing or cyanosis Neurologically awake, alert, oriented x3 . Left upper extremity muscle strength 4 out of 5. No facial droop Skin: no rash or skin lesions Musculoskeletal: no joint swelling or deformity. Time taken greater than 35 minutes including 18 minutes for counseling and coordination of care Patient Condition at Discharge: Fair Plan - Discharge Summary New Discharge Prescriptions: No Action metFORMIN HCL [Glucophage] 500 mg PO AC-TID Atorvastatin Calcium [Lipitor] 40 mg PO HS Nitroglycerin Sl Tabs [Nitrostat] 0.4 mg SUBLINGUAL Q5M PRN PRN Reason: Chest Pain Omeprazole [PriLOSEC] 20 mg PO AC-BID PRN PRN Reason: Heartburn Ipratropium-Albuterol Nebulize [Duoneb 0.5 mg-3 mg/3 ml Soln] 3 ml INHALATION RT-Q4H PRN PRN Reason: Dyspnea Aspirin 81 mg PO DAILY Gabapentin [Neurontin] 400 mg PO TID Empagliflozin [Jardiance] 25 mg PO DAILY Budesonide-Formot 160-4.5 Mcg [Symbicort 160-4.5 Mcg Inhaler] 2 puff INHALATION RT-BID PRN #1 PRN Reason: Dyspnea Discharge Medication List Atorvastatin Calcium [Lipitor] 40 mg PO HS 01/20/16 [History] metFORMIN HCL [Glucophage] 500 mg PO AC-TID 01/20/16 [History] Aspirin 81 mg PO DAILY 03/03/17 [History] Empagliflozin [Jardiance] 25 mg PO DAILY 03/03/17 [History] Gabapentin [Neurontin] 400 mg PO TID 03/03/17 [History] Ipratropium-Albuterol Nebulize [Duoneb 0.5 mg-3 mg/3 ml Soln] 3 ml INHALATION RT -Q4H PRN 03/03/17 [History] Nitroglycerin Sl Tabs [Nitrostat] 0.4 mg SUBLINGUAL Q5M PRN 03/03/17 [History] Omeprazole [PriLOSEC] 20 mg PO AC-BID PRN 03/03/17 [History] Budesonide-Formot 160-4.5 Mcg [Symbicort 160-4.5 Mcg Inhaler] 2 puff INHALATION RT-BID PRN #1 03/12/17 [Rx] Follow up Appointment(s)/Referral(s): Sky Casiano III, MD [Primary Care Provider] - 1-2 days Discharge Disposition: TRANSFER TO SNF/ECF
== END 2017-06-04 18:04 | disposition short-term general hospital (02) | DRG 65 ==
LOC: EC 00:30 → 6SEL 02:02
PROVIDERS: ADMIT Hospitalist; ATTEND Hospitalist
DX: I63.59 Cerebral infarction due to unspecified occlusion or stenosis of other cerebral artery (principal); G81.94 Hemiplegia, unspecified affecting left nondominant side; E11.40 Type 2 diabetes mellitus with diabetic neuropathy, unspecified; E11.51 Type 2 diabetes mellitus with diabetic peripheral angiopathy without gangrene; I65.22 Occlusion and stenosis of left carotid artery; E66.9 Obesity, unspecified; E11.65 Type 2 diabetes mellitus with hyperglycemia; I10 Essential (primary) hypertension; R29.810 Facial weakness; R20.9 Unspecified disturbances of skin sensation; R29.702 NIHSS score 2; E66.01 Morbid (severe) obesity due to excess calories; J44.9 Chronic obstructive pulmonary disease, unspecified; K21.9 Gastro-esophageal reflux disease without esophagitis; F32.9 Major depressive disorder, single episode, unspecified; F17.200 Nicotine dependence, unspecified, uncomplicated; Z82.49 Family history of ischemic heart disease and other diseases of the circulatory system; Z83.3 Family history of diabetes mellitus; Z79.899 Other long term (current) drug therapy; Z79.82 Long term (current) use of aspirin; Z79.51 Long term (current) use of inhaled steroids; Z86.73 Personal history of transient ischemic attack (TIA), and cerebral infarction without residual deficits; Z79.84 Long term (current) use of oral hypoglycemic drugs; Z82.3 Family history of stroke; Z90.49 Acquired absence of other specified parts of digestive tract; Z98.51 Tubal ligation status
CPT/HCPCS: 36415; 70450; 70551; 71010; 80048; 80053; 80061; 82550; 82553; 83036; 84484; 85025; 85610; 85730; 93005; 93306; 93880; 94640; 96360; 99285